=== PATIENT | female | born 1965 | race Caucasian/White ===

== ENCOUNTER 2016-10-05 12:06 | Inpatient (IN) | payer OTHER ==
[2016-10-05] VITALS (25 sets, daily range): BP systolic 66–169; BP diastolic 44–100; PULSE 50–83; RESP 14–26; TEMP 98–99.3; O2SAT 91–100
[~2016-10-05] VITALS: Ht 175.3 cm; Wt 71.5 kg
[~2016-10-05 12:06] MED LIST: CALCIUM CHLORIDE 10% SOLN 1 GRAM/10 ML SYR IV ONE; EPINEPHrine HCL (1:10,000) 1 MG/10 ML SYRINGE IV ONE; HYDR-3533 PO; IBUP400 PO; LIDOCAINE HCL 2% 100 MG/5 ML SYRINGE IV PUSH ONE; MAGNESIUM SULFATE 40 MEQ/10 ML VIAL IV ONE; SODIUM BICARBONATE 8.4% INJ 50 MEQ/50 ML SYR IV ONE
[2016-10-05] MEDS ORDERED: PROPOFOL 1000 MG/100 ML INJ 100 ML ONE (12:20)
--- NOTE | 2016-10-05 12:33 | PD ---
HPI . DENISE CHIKIS Chief Complaint: DENISE DIOP Time Seen by Provider: 12:22 Travel History International Travel<30 days: No Contact w/Intl Traveler<30days: No History of Present Illness HPI Patient presented to us via [facility] DENISE DIOP. Patient had been intubated by EMS. She had been given multiple doses of epinephrine, 75 mEq of bicarbonate and 300 mg of amiodarone. EMS reports her initial rhythm as V. fib. They report that she's been in PEA and a torsades type rhythm in addition to V. fib. They state that they have fibrillated her multiple times prior to presentation. They report that the torsades rhythm was just prior to arrival and that they did not have an opportunity to give her magnesium. EMS reports the family reports that the patient is on a cardiac transplant list. We do not have any further information about this at this point. PFSH Past Medical History Arthritis: Yes Asthma: No Blood Disorders: No Anxiety: Yes Depression: Yes Heart Rhythm Problems: Yes (PVC'S) Cancer: No Cardiovascular Problems: Yes (PVC,S) High Cholesterol: No Chemotherapy: No Chest Pain: No Congestive Heart Failure: No COPD: No Cerebrovascular Accident: No Diabetes: Yes Diminished Hearing: No Genitourinary: No Hypertension: Yes (TAKES NO MEDICATION) Psychiatric: Yes (BIPOLAR DISORDER, DEPRESSION, ATTEMPTED SUICIDE) Menopausal: Yes Past Surgical History AICD: No Appendectomy: Yes Cardiac Surgery: Yes Ear Surgery: No Endocrine Surgery: No Eye Surgery: No Genitourinary Surgery: Yes Hysterectomy: Yes Oral Surgery: No Thoracic Surgery: No Tonsillectomy: Yes Social History Alcohol Use: No Tobacco Use: No Substance Use: No Allergies-Medications (Allergen,Severity, Reaction): Coded Allergies: No Known Allergies (Verified , 05/15/11) Reported Meds & Prescriptions Reported Meds & Active Scripts Active Lortab 5 mg/325 mg (Hydrocodone/Acetaminophen 5 mg/325 mg) 1 Tab 1-2 Tab PO Q6H PRN Motrin 400 mg Tab (Ibuprofen) 400 Mg Tab 400 Mg PO Q8 PRN Review of Systems ROS Limitations: Intubated, Altered Mental Status Physical Exam Narrative GENERAL: Intubated. SKIN: Warm and dry. HEAD: Atraumatic. Normocephalic. EYES: Pupils equal and round. ENT: No nasal bleeding or discharge. Mucous membranes pink and moist. NECK: Trachea midline. CARDIOVASCULAR: Initial rhythm was V. fib. Subsequent rhythm following defibrillation 2 was normal sinus. She did have peripheral pulses and a good blood pressure following resuscitation. RESPIRATORY: Breath sounds are equal. She is ventilated. GASTROINTESTINAL: Abdomen soft, non-tender, nondistended. MUSCULOSKELETAL: No obvious deformities. No edema. NEUROLOGICAL: Unresponsive. She has developed some spontaneous movement since return of rhythm. PSYCHIATRIC: Unable to assess Data Data Orders Electrocardiogram (10/05/16 ) Propofol 1000 Mg/100 Ml Inj (Diprivan 10 (10/05/16 12:20) MDM Medical Decision Making Medical Screen Exam Complete: Yes Emergency Medical Condition: Yes Interpretation(s) EKG shows a sinus rhythm and no obvious STEMI Differential Diagnosis Differential diagnosis includes primary cardiac arrest, respiratory arrest, head injury, drug intoxication, diabetic coma Narrative Course Patient presented via [facility] in cardiac arrest. The patient has been successfully resuscitated. Please see the nurse's code sheet for details.. Critical Care Narrative Aggregate critical care time was 45 minutes. Time to perform other separately billable procedures was not included in the critical care time. My time did not include minutes spent treating any other patients simultaneously or on activities that did not directly contribute to the patient's treatment. The services I provided to this patient were to treat and/or prevent clinically significant deterioration due to cardiac arrest I provided critical care services requiring my management, as noted below: Chart data review, documentation time, medication orders and management, vital sign assessments/reviewing monitor data, ordering and reviewing lab tests, ordering and interpreting/reviewing x-rays and diagnostic studies, care of the patient and discussion of the patient with the admitting physicians Diagnosis Primary Impression: Cardiac arrest Admitting Information Admitting Physician Requests: Admit Condition: Serious Marleen Monreal MD Oct 05, 2016 12:33
[2016-10-05] MEDS ORDERED: CHLORHEXIDINE GLUCONATE 2 % 1 PACK (2 CLOTHS) TOP PRN (13:00)
[2016-10-05] MEDS ORDERED: POTASSIUM CHLOR 20 MEQ PREMIX 100 ML IV PRN ×2 (13:00)
[2016-10-05] MEDS ORDERED: MAGNESIUM SULFATE INJ 2 GM in SODIUM CHLORIDE 0.9% INJ 96 ML IV PRN (13:00)
[2016-10-05] MEDS ORDERED: ONDANSETRON HCL 4 MG/2 ML VIAL IV PRN (13:00)
[2016-10-05] MEDS ORDERED: SODIUM PHOSPHATE INJ 30 MMOL in SODIUM CHLOR 0.9% 250 ML INJ 240 ML IV PRN (13:00)
[2016-10-05] MEDS ORDERED: POTASSIUM PHOSPHATE MONOBASIC 500 MG TAB PO/TUBE PRN (13:00)
[2016-10-05] MEDS ORDERED: MAGNESIUM OXIDE 400 MG TAB PO PRN (13:00)
[2016-10-05] MEDS ORDERED: RESP: ALBUTEROL 2.5 MG/IPRATROPIUM 0.5 MG NEB (PRN) INH (13:00)
[2016-10-05] MEDS ORDERED: POTASSIUM CHLOR 40 MEQ PREMIX 100 ML IV PRN (13:00)
[2016-10-05] MEDS ORDERED: MAGNESIUM SULFATE INJ 4 GM in SODIUM CHLORIDE 0.9% INJ 92 ML IV PRN (13:00)
[2016-10-05] MEDS ORDERED: POTASSIUM PHOSPHATE MONOBASIC 500 MG TAB PO PRN (13:00)
[2016-10-05] MEDS ORDERED: POTASSIUM PHOSPHATE INJ 30 MMOL in SODIUM CHLOR 0.9% 250 ML INJ 250 ML IV PRN (13:00)
[2016-10-05] MEDS ORDERED: MISCELLANEOUS NURSING INFORMATION XX SCH (13:00)
[2016-10-05] MEDS ORDERED: DEXTROSE 50% IN WATER 50 ML VIAL(D50) IV PUSH PRN ×2 (13:00→18:15)
[2016-10-05 13:07] LABS: AUTOMATED NEUTROPHIL # 9.4 TH/MM3 (1.8-7.7); BASOPHIL # 0.1 TH/MM3 (0-0.2); BASOPHIL % 0.3 % (0.0-2.0); EOSINOPHIL # 0.1 TH/MM3 (0-0.4); EOSINOPHIL % 0.4 % (0.0-4.0); HEMATOCRIT 53.2 % (35.0-46.0); LYMPH % 60.8 % (9.0-44.0); LYMPHOCYTE # 16.5 TH/MM3 (1.0-4.8); MEAN CELL VOLUME 91.4 FL (80.0-100.0); MEAN CORPUSCULAR HEMOGLOBIN 27.9 PG (27.0-34.0); MEAN CORPUSCULAR HGB CONC 30.5 % (32.0-36.0); MONO % 3.8 % (0.0-8.0); NEUT % 34.7 % (16.0-70.0); PLATELET COUNT 186 TH/MM3 (150-450); RED BLOOD COUNT 5.82 MIL/MM3 (4.00-5.30); RED CELL DISTRIBUTION WIDTH 14.4 % (11.6-17.2); WHITE BLOOD COUNT 27.1 TH/MM3 (4.0-11.0)
[2016-10-05 13:10] LABS: HEMO FLAGS AUTO DIFF
[2016-10-05 13:17] LABS: APTT (PATIENT) 24.4 SEC (24.3-30.1); INTERNATIONAL NORMALIZED RATIO 1.1 RATIO; PROTHROMBIN TIME - PATIENT 11.8 SEC (9.8-11.6)
[2016-10-05] MEDS ORDERED: MIDAZOLAM HCL 5 MG/ML VIAL (1 ML) ONE (13:20)
--- NOTE | 2016-10-05 13:33 | HHI.HP ---
[facility] Service Critical Care Medicine Primary Care Physician Unknown Admission Diagnosis cardiac arrest Diagnosis: Chief Complaint: v. fib arrest Travel History International Travel<30 Days: No Contact w/Intl Traveler <30 Da: No Traveled to Known Affected Are: No History of Present Illness This is a 51yF who presents via [facility] for V. Fib cardiac arrest. She was given multiple rounds of epi, 2 amps of bicarb, 300mg amiodarone. Rhythms included v. fib, pea, and torsades. she received 2 gm mgso4 in the ER. ROSC was obtained. Per her two sons, she recently was at [facility] where she was given a LifeVest at the end of that admission in 07/2016. She was hot today and took off her LifeVest per her sons. They did say she had an appointment with [facility] in a few weeks to talk about "a new heart, or a pump", but no other work-up has been done. They gave me a phone number of a Dr. 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 Unfortunately, the patient is unresponsive and additional history is unobtainable. Review of Systems ROS Limitations: Clinical Condition, Intubated, Altered Mental Status, Unresponsive Past Family Social History Allergies: Coded Allergies: No Known Allergies (Verified , 05/15/11) Past Medical History Unable to obtain secondary to the clinical condition of the patient. Per EMS and hospital records: heart failure and possibly on cardiac transplant list. diabetes anxiety depression hypertension Bipolar disorder Depression ?prior history of attempted suicide Past Surgical History unable to obtain secondary to the clinical condition of the patient. Per chart review of remote hospital records: Appendectomy Hysterectomy Tonsillectomy Reported Medications Unknown and unobtainable secondary to the clinical condition of the patient. Active Ordered Medications See MAR Family History unknown and unobtainable secondary to the clinical condition of the patient Social History unknown and unobtainable secondary to the clinical condition of the patient. Per her sons, possible remote history of drug abuse Physical Exam Vital Signs Vital Signs Date Time Temp Pulse Resp B/P Pulse Ox O2 Delivery O2 Flow Rate FiO2 10/05/16 12:37 100 10/05/16 12:35 53 16 131/80 97 Ventilator 10/05/16 12:33 95 100 10/05/16 12:26 56 18 140/78 97 Ventilator 10/05/16 12:20 70 138/87 99 Ventilator 10/05/16 12:15 60 20 169/100 91 Ventilator Physical Exam gen: middle-aged female, lying in bed, intubated, unresponsive, critically ill. heent: pupils 2mm, conjugate, reactive. mucous membranes moist neck: trachea midline. +jvd. chest: bilateral breath sounds. equal chest rise cv: bradycardic rate, regular rhythm. sinus by tele abd: soft, nontender, nondistended, no guarding. extr: cold, poorly perfused. neuro: purposeful, does not follow commands. +cough. + gag. Laboratory pending. Imaging ct head pending. I performed bedside critical care echocardiogram which demonstrated severe biventricular dysfunction, no clinically significant valvular lesions, no pericardial effusion, dilated IVC with spontaneous echo contrast in the IVC and right atrium. Assessment and Plan Assessment and Plan Assessment: 51yF with history of an unknown type of heart failure who may be worked up for transplantation who presents after V. Fib arrest with persistence of cardiogenic shock in extremis. We will work towards stabilizing her with inotropes, vasopressors. we will need pulmonary artery catheter to guide management. she remains full code per her sons, but will need palliative to help address code status. We will attempt to obtain OSH records from the lifevest and recent admission. She remains very critically ill at this time. Active Problems: Possible hypoxic ischemic encephalopathy Cardiogenic Shock Acute hypoxic and hypercarbic respiratory failure s/p V. Fib Cardiac arrest Plan: -- admit to the ICU. -- art line, cvl, pac -- start epi for contractility -- may need vasoopressors. -- may need cardiology assistance and may need LV support with IABP or impella. -- versed prn for sedation and vent synchrony -- NPO while in shock -- no SBT today. vent bundle, hob at 30 degrees, nebs. wean fio2 for spo2 > 90% -- arvizu with strict i/o's and q1h uop -- cbc, bmp, lfts, coags, lactate, type and screen, u/a, UDS, toxin levels. -- trend troponins and lactate This patient remains critically ill with one or more organ systems which are or may become a threat to life. I have spent in excess of 107 minutes discontinuously in the care and management of this patient. This time is exclusive of procedures, and includes, but is not limited to, evaluation of the patient, review of the medical record, discussions with family, consultants, nursing staff, or respiratory therapy, and documentation in the medical record. Code Status Full Code Discussed Condition With Her two sons. Karel Givens MD Oct 05, 2016 13:33
[2016-10-05 13:36] LABS: BANDS 3 % (0-6); METAMYELOCYTES 1 % (0-1); NEUTROPHIL # MANUAL DIFF 11.9 TH/MM3 (1.8-7.7); POLYS (SEG NEUTROPHILS) 40 % (16-70); WBC DIFF SAMPLE 100
[2016-10-05 13:37] LABS: ACETAMINOPHEN LESS THAN 2.0 MCG/ML (10.0-30.0); ALKALINE PHOSPHATASE 152 U/L (45-117); ALT (GPT) 36 U/L (10-53); CREATINE KINASE 197 U/L (26-192); TOTAL BILIRUBIN ADULT 0.5 MG/DL (0.2-1.0)
[2016-10-05 13:39] LABS: OVALOCYTES 1+ (NORMAL); PLATELET ESTIMATE SMEAR NORMAL (NORMAL); PLATELET MORPHOLOGY NORMAL (NORMAL); SCAN/DIFF FINAL DIFF MANUAL; SMUDGE CELLS PRESENT PRESENT
[2016-10-05 14:08] LABS: ANION GAP 14 MEQ/L (5-15); AST (GOT) 60 U/L (15-37); BLOOD UREA NITROGEN 9 MG/DL (7-18); CHLORIDE 105 MEQ/L (98-107); GLOMERULAR FILTRATION RATE 48 ML/MIN (>89); INDIRECT BILIRUBIN 0.4 MG/DL (0.0-0.8); SODIUM (NA) 141 MEQ/L (136-145)
--- NOTE | 2016-10-05 14:15 | RADRPT ---
EXAM DATE/TIME: 10/05/2016 14:02 [facility] COMPARISON: No previous studies available for comparison. INDICATIONS : Altered mental status. RADIATION DOSE: 31.35 CTDIvol (mGy) MEDICAL HISTORY : Cardiovascular disease. Hypertension. SURGICAL HISTORY : Appendectomy. Hysterectomy. ENCOUNTER: Initial ACUITY: 1 day PAIN SCALE: Non-responsive LOCATION: cranial TECHNIQUE: Multiple contiguous axial images were obtained of the head. Using automated exposure control and adj ustment of the mA and/or kV according to patient size, radiation dose was kept as low as reasonably a chievable to obtain optimal diagnostic quality images. DICOM format image data is available electro nically for review and comparison. 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 The ventricles are normal for ag e. No evidence of midline shift, mass lesion, hemorrhage or acute infarction. No extra-axial fluid collections are seen. POSTERIOR FOSSA: The cerebellum and brainstem are intact. The 4th ventricle is midline. The cerebellopontine angle i s unremarkable. EXTRACRANIAL: The visualized portion of the orbits is intact. SKULL: The calvaria is intact. No evidence of skull fracture. CONCLUSION: 1. Remote posterior temporal/parietal infarct with laminar necrosis. 2. No acute intracranial abnormality. Alber Millan MD on October 05, 2016 at 14:12 Board Certified Radiologist. This report was verified electronically.
[2016-10-05 14:38] LABS: CKMB 2.9 NG/ML (0.5-3.6)
[2016-10-05] MEDS ORDERED: LIDOCAINE HCL 2% 100 MG/5 ML SYRINGE ONE (14:43)
--- NOTE | 2016-10-05 14:49 | ECHRPT ---
Indication: Heart failure, unspecified CONCLUSIONS The left ventricular systolic function is severely reduced with an estimated ejection fraction less than 20%. There is global left ventricular dysfunction. Wall thickness is measured at the upper limits of normal. Moderately dilated left ventricle. The right ventricle is moderately dilated. Jkhj-yn-oebffuyp mitral valve regurgitation. There is mild tricuspid valve regurgitation. The estimated pulmonary arterial pressure is 26 mmHg. BP: / HR: 53 Rhythm: Sinus MEASUREMENTS (Male / Female) Normal Values Technical Quality:Good 2D ECHO LV Diastolic Diameter PLAX 6.1 cm 4.2 - 5.9 / 3.9 - 5.3 cm LV Systolic Diameter PLAX 5.8 cm IVS Diastolic Thickness 1.0 cm 0.6 - 1.0 / 0.6 - 0.9 cm LVPW Diastolic Thickness 1.0 cm 0.6 - 1.0 / 0.6 - 0.9 cm LV Relative Wall Thickness 0.3 RV Internal Dim ED PLAX 4.1 cm LVOT Diameter 2.1 cm M-MODE Aortic Root Diameter MM 3.1 cm LA Systolic Diameter MM 4.0 cm LA Ao Ratio MM 1.3 AV Cusp Separation MM 1.3 cm DOPPLER AV Peak Velocity 89.5 cm/s AV Peak Gradient 3.2 mmHg LVOT Peak Velocity 74.0 cm/s LVOT Peak Gradient 2.2 mmHg AV Area Cont Eq pk 2.9 cm MR Peak Velocity 270.5 cm/s MR Peak Gradient 29.3 mmHg TR Peak Velocity 197.0 cm/s TR Peak Gradient 15.5 mmHg PV Peak Velocity 67.9 cm/s PV Peak Gradient 1.8 mmHg FINDINGS LEFT VENTRICLE There is global left ventricular dysfunction. The left ventricular systolic function is severely reduced with an estimated ejection fraction less than 20%. Wall thickness is measured at the upper limits of normal. Moderately dilated left ventricle. RIGHT VENTRICLE The right ventricle is moderately dilated. LEFT ATRIUM The left atrial size is normal. RIGHT ATRIUM The right atrial size is normal. ATRIAL SEPTUM Normal atrial septal thickness without atrial level shunting by limited color doppler interrogation. AORTA The aortic root and proximal ascending aorta are normal in size on limited imaging. MITRAL VALVE Txif-gq-yrfnaczv mitral valve regurgitation. AORTIC VALVE Trileaflet aortic valve. No aortic valve stenosis or regurgitation. TRICUSPID VALVE There is mild tricuspid valve regurgitation. The estimated pulmonary arterial pressure is 26 mmHg. PULMONARY VALVE The pulmonary valve is not well visualized. VESSELS The inferior vena cava is normal in size. PERICARDIUM No pericardial effusion. Tez Brunner MD (Electronically Signed) Final Date:05 October 2016 14:47
[2016-10-05 15:00] LABS: LACTIC ACID GHOST NOT REPORTABLE
[2016-10-05] MEDS ORDERED: NOREPINEPHRINE-DEXTROSE DRIP 250 ML IV SCH (15:00)
[2016-10-05] MEDS ORDERED: VASOPRESSIN INJ 40 UNITS in DEXTROSE 5% IN WATER 100ML INJ 98 ML IV SCH ×2 (15:00)
[2016-10-05] MEDS ORDERED: EPINEPHrine (1:1000) INJ 2 MG in DEXTROSE 5% IN WATER INJ 248 ML IV SCH ×2 (15:00)
[2016-10-05] MEDS ORDERED: MIDAZOLAM HCL 5 MG/5 ML VIAL IV ONE (15:45)
[2016-10-05] MEDS ORDERED: CLEVIDIPINE INJ 50 ML ONE (15:50)
[2016-10-05] MEDS: PROPOFOL 1000 MG/100 ML IV SCH ×4 (15:56→22:41)
--- NOTE | 2016-10-05 15:56 | PD.PROCEDR ---
Procedure Note Procedure Procedure: Arterial Line Placement Left radial arterial line Diagnosis: Status post V. fib arrest Indications: Need for beat to beat hemodynamic monitoring Consent: Consent is deemed emergent or medically necessary Description of the Procedure: The left wrist was prepped and draped sterilely. 1% lidocaine was used for local anesthesia. The pulse was located and a needle was advanced into the artery. A 20 gauge, 12 cm catheter was advanced into the artery using a modified Seldinger technique. The catheter was sutured to the skin and a sterile dressing was applied. The catheter was connected to a pressure transducer and an arterial waveform was noted. There were no immediate complications noted. There was minimal EBL. I personally performed the procedure. Karel Givens MD Oct 05, 2016 15:56
--- NOTE | 2016-10-05 15:57 | PD.PROCEDR ---
Procedure Note Procedure Central Line Procedure Note Right IJ 8.5 Setswana 10 cm Cordis introducer sheath Diagnosis: Status post V. fib arrest Indications: Need for central pressure monitoring and highly potent vasoactive substances Consent: Consent is deemed emergent Anesthesia: Versed Description of the Procedure: The patient was placed in the supine, mild- Trendelenburg position. The area was prepped and draped sterilely. A 19g needle was inserted under negative pressure aspiration and dark venous blood was obtained. A guidewire was inserted easily without resistance. A small incision was made using a #11 blade. Using a modified Seldinger technique, the dilator and 8.5 Setswana, 10 cm catheter were advanced over the guidewire without resistance. All ports were aspirated and flushed, and had brisk blood return. The line was secured at the skin using 2-0 silk interrupted sutures. A Biopatch and Transparent sterile dressing were applied. There were no immediate complications noted. There was minimal EBL. The patient tolerated the procedure well. Ultrasound Guidance: Ultrasound guidance was used to identify the right internal jugular vein. The vascular anatomy of the right anterior neck was normal. The vessel was cannulated under direct, real-time ultrasound visualization. After placement of the guidewire, confirmation of the guidewire in the lumen of the vessel was made using ultrasound visualization, before dilation of the tract. A Chest x-ray has been ordered. I personally performed the procedure. Karel Givens MD Oct 05, 2016 15:57
[2016-10-05] MEDS: INSULIN NovoLIN REGULAR SUPPLEMENTAL SCALE SQ SCH ×2 (16:00→20:00)
--- NOTE | 2016-10-05 16:03 | PD.PROCEDR ---
Procedure Note Procedure Pulmonary Artery Catheter Procedure Note Right IJ PA catheter Diagnosis: Status post V. fib arrest Indications: Need for thermodilution cardiac output Consent: Consent is deemed emergent Anesthesia: Versed IV Description of the Procedure: The patient was placed in the supine, mild-Reverse -Trendelenburg position. The area was prepped and draped sterilely. A 6 Fr pulmonary artery catheter was flushed, and all ports were checked, including PA , CVP, infusion port. The balloon was tested and inflated and deflated easily. Through an existing introducer sheath, the catheter was inserted to a depth of 20 cm and the balloon was inflated without resistance. The PA catheter was advanced under continuous waveform hemodynamic monitoring and appropriate RA, RV , PA, and PCWP waveforms were achieved. The balloon was deflated. The line was secured to the introducer sheath using a sterile cover. There were no immediate complications noted. There was minimal EBL. The patient tolerated the procedure well. PA catheter secured at: 45 cm. Hemodynamic Data: RAP: 15 mmHg RV: 75/7 mmHg PAP: 77/37 (39) mmHg PCWP: 32 mmHg achieved at 46 cm Mixed Venous SvO2: Pending % Cardiac Output: 3.1 L/min Cardiac Index: 1.8 A Chest x-ray has been ordered. I personally performed the procedure. Karel Givens MD Oct 05, 2016 16:02
--- NOTE | 2016-10-05 16:04 | PD.PROCEDR ---
Procedure Note Procedure Defibrillation procedure note Presenting rhythm: Pulseless V. tach Event Details: Defibrillation 1 at 200 J. Successful. Please see code sheet for details Procedure Description: Arrived at [facility]. See code sheet for details. I was personally present for the entire defibrillation event. Karel Givens MD Oct 05, 2016 16:04
--- NOTE | 2016-10-05 16:04 | RADRPT ---
EXAM DATE/TIME: 10/05/2016 15:40 [facility] COMPARISON: No previous studies available for comparison. INDICATIONS : Central line placement. MEDICAL HISTORY : Cardiovascular disease. Hypertension. SURGICAL HISTORY : Appendectomy. Hysterectomy. ENCOUNTER: Initial ACUITY: 1 day PAIN SCORE: Non-responsive. LOCATION: Bilateral chest FINDINGS: A single view of the chest demonstrates multilobar consolidation greater throughout the left lung. En dotracheal tube 4.5 cm above the susy. Nasogastric tube tip in stomach. Sorrento-Stephany catheter overlyin g the main pulmonary trunk. No pneumothorax. Osseous structures are intact. CONCLUSION: Multilobar consolidation. Adequate placement of Sorrento-Stephany catheter. Alber Millan MD on October 05, 2016 at 15:59 Board Certified Radiologist. This report was verified electronically.
[2016-10-05] MEDS: RESP: ALBUTEROL 2.5 MG/IPRATROPIUM 0.5 MG NEB (SCH) INH ×2 (16:12→20:37)
[2016-10-05 17:05] LABS: AMPHETAMINE, URINE NEG (NEG); BARBITURATES, URINE NEG (NEG); COCAINE, URINE NEG (NEG)
[2016-10-05 17:27] LABS: BACTERIA, URINE FEW /hpf; BLOOD, URINE SMALL (NEG); GLUCOSE,URINE 1000 mg/dL (NEG); HYALINE CAST, URINE 4 /lpf (RARE); KETONE, URINE NEG (NEG); MUCUS URINE FEW /lpf (OCC); NITRITE,URINE NEG (NEG); SQUAMOUS EPITHELIAL CELL URINE 1 /hpf (0-5); TRANSITIONAL EPI CELLS, URINE 1 /hpf; URINE COLOR YELLOW (YELLW/STRAW)
[2016-10-05 17:28] LABS: COMMENT (UR) CATH-CULTURE IND; CULTURE IF INDICATED CATH CULTURE IND
[2016-10-05] MEDS ORDERED: MAGNESIUM SULFATE 1 GM PREMIX 100 ML ONE (17:29)
--- NOTE | 2016-10-05 17:36 | EKG ---
Date Performed: 10/05/2016 Time Performed: 12:23:03 PTAGE: 51 years EKG: Sinus rhythm WITH SINUS ARRHYTHMIA BASELINE ARTIFACT AFFECTS INTERPRETATION MARKED LEFT AXIS DEVIATION INCOMPLETE RIGHT BUNDLE BRANCH BLOCK SEPTAL MYOCARDIAL INFARCTION MODERATE T-WAVE ABNORMALITY, CONSIDER ANTERIO R ISCHEMIA ABNORMAL ECG PREVIOUS TRACING : 12/18/2005 12.10 Compared to the previous tracing, IRBBB with changes are no w noted DOCTOR: Gil Hodge Interpretating Date/Time 10/05/2016 17:34:46
[2016-10-05 17:38] LABS: BLOOD GAS VENOUS BASE EXCESS 2.3 mmol/L (-2-2); BLOOD GAS VENOUS HCO3 27 mmol/L (22-26); BLOOD GAS VENOUS O2 CONTENT 16.3 Vol % (9.0-17.0); BLOOD GAS VENOUS O2 HGB SAT 79 % (70-76); BLOOD GAS VENOUS PCO2 44 mmHg (44-48); BLOOD GAS VENOUS PO2 48 mmHg (35-40); CRITICAL VALUE NO; TEMP CORR TO 98.6
[2016-10-05 17:39] LABS: DRAW SITE CENTRAL LINE; FIO2 100 %; OXYGEN DEVICE VENTILATOR; STAT YES
--- NOTE | 2016-10-05 17:50 | PD.PROCEDR ---
Procedure Note Procedure CPR procedure note Presenting rhythm: Torsades Event Details: Magnesium 2 mg IV 1 given. 2 rounds of ACLS. Defibrillation it 200 J 2. See code sheet for details. Procedure Description: Arrived at [facility]. Followed ACLS guidelines. See code sheet for details. I was personally present for the entire CPR event. Karel Givens MD Oct 05, 2016 17:50
[2016-10-05] MEDS ORDERED: FUROSEMIDE 100 MG/10 ML VIAL IV PUSH ONE (18:00)
[2016-10-05] MEDS: POTASSIUM CHLOR 40 MEQ PREMIX 100 ML IV PRN ×2 (18:04→18:09)
[2016-10-05] MEDS: LIDOCAINE IV SCH (18:13)
[2016-10-05] MEDS: DEXTROSE IV SCH (18:13)
[2016-10-05] MEDS: MIDAZOLAM 100 MG/NS 100 ML DRIP Premix IV SCH (18:14)
[2016-10-05] MEDS: AMIODARONE INJ 450 MG in DEXTROSE 5% IN WATE(EXCEL) INJ 241 ML IV SCH ×2 (18:14)
[2016-10-05] MEDS ORDERED: MISC INFORMATION OTHER ONE (18:15)
[2016-10-05] MEDS: MILRINONE 20 MG/NS 100 ML (0.375 mcg/kg/min) IV SCH ×2 (18:17)
[2016-10-05 18:49] LABS: MAGNESIUM 4.5 MG/DL (1.5-2.5)
[2016-10-05] MEDS: CHLORHEXIDINE 0.12% (ORAL KIT) 15 ML CUP MT SCH (20:05)
[2016-10-05] MEDS: DOCUSATE SODIUM 50 MG/SENNA 8.6 MG TAB PO SCH (20:05)
[2016-10-05] MEDS ORDERED: NOREPINEPHRINE INJ 4 MG in SODIUM CHLOR 0.9% 250 ML INJ 246 ML IV SCH (21:15)
[2016-10-05] MEDS ORDERED: VASOPRESSIN INJ 40 UNITS in SODIUM CHLORIDE 0.9% INJ 98 ML IV SCH (21:15)
[2016-10-06] VITALS (14 sets, daily range): BP systolic 98–144; BP diastolic 42–74; PULSE 64–82; RESP 15–20; TEMP 98.3–99.3; O2SAT 98–99
[2016-10-06] MEDS: EPINEPHrine (1:1000) INJ 2 MG in SODIUM CHLOR 0.9% 250 ML INJ 248 ML IV SCH ×2 (00:27→08:51)
[2016-10-06] MEDS: INSULIN REGULAR 100 UNITS/100 ML NS ALGORITHM 4 IV SCH ×2 (00:36)
[2016-10-06] MEDS: POTASSIUM CHLOR 40 MEQ PREMIX 100 ML IV PRN (00:59)
[2016-10-06] MEDS: AMIODARONE INJ 450 MG in DEXTROSE 5% IN WATE(EXCEL) INJ 241 ML IV SCH ×4 (03:14→17:50)
[2016-10-06] MEDS: RESP: ALBUTEROL 2.5 MG/IPRATROPIUM 0.5 MG NEB (SCH) INH ×4 (03:22→21:40)
[2016-10-06] MEDS: CHLORHEXIDINE GLUCONATE 2 % 1 PACK (2 CLOTHS) TOP SCH (04:00)
[2016-10-06] MEDS: MILRINONE 20 MG/NS 100 ML (0.375 mcg/kg/min) IV SCH ×4 (05:13→17:53)
[2016-10-06] MEDS: MIDAZOLAM 100 MG/NS 100 ML DRIP Premix IV SCH (05:14)
[2016-10-06 07:38] LABS: HEMATOCRIT 42.4 % (35.0-46.0); MEAN CELL VOLUME 87.5 FL (80.0-100.0); MEAN CORPUSCULAR HEMOGLOBIN 27.7 PG (27.0-34.0); MEAN CORPUSCULAR HGB CONC 31.7 % (32.0-36.0); PLATELET COUNT 228 TH/MM3 (150-450); RED BLOOD COUNT 4.84 MIL/MM3 (4.00-5.30); RED CELL DISTRIBUTION WIDTH 14.3 % (11.6-17.2); REVIEW FLAG FINAL; WHITE BLOOD COUNT 26.1 TH/MM3 (4.0-11.0)
[2016-10-06 07:53] LABS: BICARBONATE 29.9 MEQ/L (21.0-32.0); MAGNESIUM 2.1 MG/DL (1.5-2.5); POTASSIUM 4.2 MEQ/L (3.5-5.1)
[2016-10-06] MEDS: CHLORHEXIDINE 0.12% (ORAL KIT) 15 ML CUP MT SCH ×2 (08:35→20:17)
[2016-10-06] MEDS: PANTOPRAZOLE SODIUM 40 MG VIAL IV SCH (08:39)
[2016-10-06] MEDS: DOCUSATE SODIUM 50 MG/SENNA 8.6 MG TAB PO SCH ×2 (08:41→20:48)
[2016-10-06] MEDS: LIDOCAINE IV SCH (08:51)
[2016-10-06] MEDS: DEXTROSE IV SCH (08:51)
[2016-10-06] MEDS ORDERED: POTASSIUM CHLOR 10 MEQ PREMIX 100 ML IV ONE (10:00)
--- NOTE | 2016-10-06 10:18 | HHI.CCPN ---
Subjective Remarks/Hospital Course Hospital Course: This is a 51yF who presents via [facility]AC for V. Fib cardiac arrest. She was given multiple rounds of epi, 2 amps of bicarb, 300mg amiodarone. Rhythms included v. fib, pea, and torsades. she received 2 gm mgso4 in the ER. ROSC was obtained. Per her two sons, she recently was at [facility] where she was given a LifeVest at the end of that admission in 07/2016. She was hot today and took off her LifeVest per her sons. They did say she had an appointment with [facility] in a few weeks to talk about "a new heart, or a pump", but no other work-up has been done. They gave me a phone number of a Dr. Mckoy who is her product safety consultant. Unfortunately, the patient is unresponsive and additional history is unobtainable. Subjective: 10/06: multiple v. fib and v. tach episodes overnight. required 3 cardioversions. RHC numbers: HR 63, art 139/67 (72), PA 35/5 (18), RAP 10, PCWP 4, CI 3.4, SV 101 mL, SVR 780 dyns*sec/cm^5. neuro exam stable, withdraws x 4. adequate uop overnight, but Cr slightly worse, likely secondary to ongoing cardiogenic shock. remains on amiodarone, lidocaine, epi, milrinone. overnight when epi was weaned, patient became unstable. Objective Vital Signs Date Time Temp Pulse Resp B/P Pulse Ox O2 Delivery O2 Flow Rate FiO2 10/06/16 08:01 99 40 10/06/16 07:00 68 106/51 139/59 10/06/16 07:00 Mechanical Ventilator 10/06/16 07:00 99.0 15 Intake and Output 10/05/16 10/05/16 10/06/16 08:00 16:00 00:00 Intake Total 450 ml Output Total 1300 ml Balance -850 ml Result Diagram: 10/06/16 0705 10/06/16 0705 Other Results Laboratory Tests Test 10/05/16 17:30 Blood Gas Puncture Site CENTRAL LINE Blood Gas Patient Temperature 98.6 Venous Blood pH 7.40 (7.360-7.400) Venous Blood Partial Pressure 44 mmHg (44-48) CO2 Venous Blood Partial Pressure 48 mmHg (35-40) O2 Venous Blood HCO3 27 mmol/L (22-26) Venous Blood Oxygen Saturation 79 % (70-76) Venous Blood Oxygen Content 16.3 Vol % (9.0-17.0) Venous Blood Base Excess 2.3 mmol/L (-2-2) Oxygen Delivery Device VENTILATOR Blood Gas Ventilator Setting AC,15,500,PEEP5 Blood Gas Inspired Oxygen 100 % Imaging ct head pending. I performed bedside critical care echocardiogram which demonstrated severe biventricular dysfunction, no clinically significant valvular lesions, no pericardial effusion, dilated IVC with spontaneous echo contrast in the IVC and right atrium. Objective Remarks gen: middle-aged female, lying in bed, intubated, critically ill. heent: pupils 2mm, conjugate, reactive. mucous membranes moist neck: trachea midline. -jvd. RIJ cvl site intact and clean. chest: bilateral breath sounds. equal chest rise cv: normal rate, regular rhythm. sinus by tele. PA catheter in place. abd: soft, nontender, nondistended, no guarding. extr: extremities with improved perfusion. neuro: w/d x 4. RASS -3. +cough. + gag. A/P Assessment and Plan Assessment: 51yF with history of severe NICM, baseline EF ~20%, and a history of IV drug abuse with last known use 10 days prior to admission. Now presents s/ p V. Fib arrest out of hospital with persistence of cardiogenic shock and severe dysrhythmias. Continue inotropic therapy. will slowly wean epi as tolerated, though it appears she does not do well when her inotropes are weaned too quickly. Continue PA catheter today and trend cardiac output. She remains very critically ill at this time. Plan by systems: Neurologic: Hypoxic ischemic encephalopathy Frequent neurochecks Versed when necessary for goal RASS -2 --avoid long-acting sedatives Respiratory: Acute hypoxic and hypercarbic respiratory failure Secondary to cardiac arrest Vent bundle Head of bed 30 Nebs Wean FiO2 for goal SPO2 greater than 92% Does not meet SBT criteria today given ongoing cardiogenic shock Cardiovascular: Cardiogenic shock Status post V. fib arrest Severe nonischemic cardiomyopathy, EF less than 20% Severe biventricular dysfunction Severe acute systolic heart failure exacerbation Ventricular dysrhythmias Continue PA catheter Continue milrinone Slowly wean epi as tolerated for goal cardiac index greater than 2.5 Goal map greater than 65. We will use norepinephrine and vasopressin as needed Appreciate cardiology's ongoing recommendations Continue IV amiodarone at 1 mg/m Continue IV lidocaine at 2 mg/m Serial thermodilution cardiac outputs Hold on further diuresis given low wedge Renal: Acute kidney injury Likely secondary cardiogenic shock and postarrest Continue strict every hour urine outputs Hold on further diuresis given low pulmonary wedge pressure -- Strict I/Os FEN/GI: Acute protein calorie malnutritionmoderate Hypomagnesemia Hypokalemia Lactic acidosis Aggressive electrolyte replacements given dysrhythmias Nothing by mouth while in shock Daily BMP Trend lactates Heme/ID: Leukocytosislikely reactive No suspicious for infectious etiology this time. Follow-up blood cultures If blood cultures are positive or patient spikes fever will clinically cover with empiric antibiotics Daily BMP Endocrine: Hyperglycemia of critical illness -- SSI Prophylaxis: GI Prophylaxis Protonix 40 mg IV every 24 hours DVT Prophylaxis -- SCDs Subcutaneous heparin Lines: 7/8 left radial arterial line 7/8 right IJ 8.5 [place] Cordis introducer sheath 7/8 right IJ PEA catheter Fabian Disposition: Remain in the ICU. Very critically ill. This patient remains critically ill with one or more organ systems which are or may become a threat to life. I have spent in excess of 63 minutes discontinuously in the care and management of this patient. This time is exclusive of procedures, and includes, but is not limited to, evaluation of the patient, review of the medical record, discussions with family, consultants, nursing staff, or respiratory therapy, and documentation in the medical record. Karel Givens MD Oct 06, 2016 10:18
[2016-10-06] MEDS: MAGNESIUM SULFATE 1 GM PREMIX 100 ML IV SCH ×2 (12:40→12:41)
[2016-10-06] MEDS: PROPOFOL 1000 MG/100 ML IV SCH ×2 (13:56→17:51)
--- NOTE | 2016-10-06 14:25 | MB ---
cc: CASSY LOPEZ DINESH MD DATE OF CONSULTATION: 10/06/2016. REASON FOR CONSULTATION: Cardiac arrest. HISTORY OF PRESENT ILLNESS: Mrs. Rojas is a 51-year-old lady who is well-known to our practice. She had presented in June to [facility] with a significant cardiomyopathy. She underwent cardiac catheterization, which confirmed a nonischemic cardiomyopathy. She was put on a LifeVest and sent home with medical therapy. She went into ventricular tachycardia yesterday and needed to be defibrillated and was brought in to [facility]. She was moving and arousable and hence, the Code Cool was not initiated. Subsequently, she had two more episodes of ventricular tachycardia. Currently she is intubated with an FIO2 of 40%. She is on vasopressin for blood pressure support. She is on milrinone for pump support and she is on amiodarone and lidocaine. Her urine output has been 30-40 mL an hour. CURRENT MEDICATIONS: 1. Pantoprazole 40. 2. Heparin 5000 subcutaneous. 3. Clevidipine. 4. Amiodarone. 5. Lidocaine. REVIEW OF SYSTEMS: Her review of systems is limited as the patient is intubated. PAST MEDICAL HISTORY: 1. She does have a history of hypertension. 2. Bipolar disorder. 3. Depression. PAST SURGICAL HISTORY: 1. Appendectomy. 2. Hysterectomy. 3. Tonsillectomy. FAMILY HISTORY: Really not obtainable. SOCIAL HISTORY: Really not obtainable. PHYSICAL EXAMINATION: VITAL SIGNS: On clinical exam, blood pressure is 130/70, heart rate 70, respiratory rate 18. NECK: No jugular venous distension seen. HEART: Heart sounds are regular. Murmur of mitral regurgitation is heard over the apex. RESPIRATORY SYSTEM: Clear. ABDOMEN: Abdomen soft and nontender. Bowel sounds heard normally. EXTREMITIES: No pedal edema. LABORATORY STUDIES: Blood work and this morning shows creatinine of 1.24, potassium is 4.2, Magnesium is 2.1. Peak troponin 2.73. White count 26, hemoglobin 13.4, platelet count 228,000. IMPRESSION AND RECOMMENDATIONS: 1. Cardiac arrest in a patient with a nonischemic cardiomyopathy on inotropic support and antiarrhythmic therapy. Her wedge is low and she may need some fluid resuscitation depending on her urine output. I discussed this with the electronic operator. She will need a defibrillator if her neurological status is intact. I will review the case with Dr. Lopez who will see her tomorrow. Overall, her condition is critical and guarded. Further recommendations to follow hospital course. MD WAYNE Mendosa/MICHAEL /1:59 PM /2:19 PM
[2016-10-06] MEDS: HEPARIN SODIUM - SQ 10,000 UNITS/ML VIAL SQ SCH ×2 (15:44→22:13)
[2016-10-07] VITALS (16 sets, daily range): BP systolic 96–143; BP diastolic 50–75; PULSE 62–96; RESP 15–19; TEMP 98.3–100.2; O2SAT 96–99
[2016-10-07] MEDS: PROPOFOL 1000 MG/100 ML IV SCH ×3 (00:32→12:10)
[2016-10-07] MEDS: MIDAZOLAM 100 MG/NS 100 ML DRIP Premix IV SCH (01:16)
[2016-10-07] MEDS: LIDOCAINE IV SCH ×2 (01:17→18:32)
[2016-10-07] MEDS: DEXTROSE IV SCH ×2 (01:17→18:32)
[2016-10-07] MEDS: CHLORHEXIDINE GLUCONATE 2 % 1 PACK (2 CLOTHS) TOP SCH (03:44)
[2016-10-07] MEDS: RESP: ALBUTEROL 2.5 MG/IPRATROPIUM 0.5 MG NEB (SCH) INH ×4 (03:59→21:27)
[2016-10-07 04:30] LABS: MEAN CELL VOLUME 87.4 FL (80.0-100.0); MEAN CORPUSCULAR HEMOGLOBIN 28.4 PG (27.0-34.0); MEAN CORPUSCULAR HGB CONC 32.5 % (32.0-36.0); PLATELET COUNT 168 TH/MM3 (150-450); RED BLOOD COUNT 4.57 MIL/MM3 (4.00-5.30); RED CELL DISTRIBUTION WIDTH 14.1 % (11.6-17.2); REVIEW FLAG FINAL; WHITE BLOOD COUNT 17.8 TH/MM3 (4.0-11.0)
[2016-10-07 04:49] LABS: BICARBONATE 27.6 MEQ/L (21.0-32.0); MAGNESIUM 2.1 MG/DL (1.5-2.5); POTASSIUM 4.4 MEQ/L (3.5-5.1)
[2016-10-07] MEDS: HEPARIN SODIUM - SQ 10,000 UNITS/ML VIAL SQ SCH ×3 (06:03→20:50)
[2016-10-07] MEDS: CHLORHEXIDINE 0.12% (ORAL KIT) 15 ML CUP MT SCH ×2 (09:15→20:50)
[2016-10-07] MEDS: DOCUSATE SODIUM 50 MG/SENNA 8.6 MG TAB PO SCH ×2 (09:15→20:50)
[2016-10-07] MEDS: PANTOPRAZOLE SODIUM 40 MG VIAL IV SCH (09:16)
[2016-10-07] MEDS: MILRINONE 20 MG/NS 100 ML (0.375 mcg/kg/min) IV SCH ×4 (09:17→15:58)
[2016-10-07] MEDS: AMIODARONE INJ 450 MG in DEXTROSE 5% IN WATE(EXCEL) INJ 241 ML IV SCH ×2 (09:32)
[2016-10-07] MEDS: MUPIROCIN 2% OINT 1 APPLIC/GM SYR EACH NARE SCH ×2 (12:10→20:50)
[2016-10-07] MEDS ORDERED: CALCIUM CHLORIDE INJ 1 GM in SODIUM CHLORIDE 0.9% INJ 100 ML IV ONE (13:00)
[2016-10-07] MEDS ORDERED: LIDOCAINE HCL 2% 100 MG/5 ML SYRINGE ONE (14:00)
[2016-10-07] MEDS: fentaNYL DRIP 250 ML IV SCH (15:23)
[2016-10-07] MEDS: INSULIN REGULAR 100 UNITS/100 ML NS ALGORITHM 4 IV SCH ×2 (17:42)
--- NOTE | 2016-10-07 18:22 | HHI.CCPN ---
Subjective Remarks/Hospital Course Hospital Course: This is a 51yF who presents via EVAC for V. Fib cardiac arrest. She was given multiple rounds of epi, 2 amps of bicarb, 300mg amiodarone. Rhythms included v. fib, pea, and torsades. she received 2 gm mgso4 in the ER. ROSC was obtained. Per her two sons, she recently was at [facility] where she was given a LifeVest at the end of that admission in 07/2016. She was hot today and took off her LifeVest per her sons. They did say she had an appointment with [facility] in a few weeks to talk about "a new heart, or a pump", but no other work-up has been done. They gave me a phone number of a Dr. Mckoy [phone] who is her cassandra developer. Unfortunately, the patient is unresponsive and additional history is unobtainable. Subjective: 10/06: multiple v. fib and v. tach episodes overnight. required 3 cardioversions. RHC numbers: HR 63, art 139/67 (72), PA 35/5 (18), RAP 10, PCWP 4, CI 3.4, SV 101 mL, SVR 780 dyns*sec/cm^5. neuro exam stable, withdraws x 4. adequate uop overnight, but Cr slightly worse, likely secondary to ongoing cardiogenic shock. remains on amiodarone, lidocaine, epi, milrinone. overnight when epi was weaned, patient became unstable. 10/07: seen and examined around 1300. family at bedside. all questions answered. cardiac index improved throughout the night overnight. weaning sedation. grimaces to pain. RHC numbers: HR 81, art 127/89 (79), RAP 10, PAP 48/16 (29), PCWP 19. CO/CI 8.2/4.5, SV 101 mL, SVR 672. epi weaned off. remains on milrinone. Objective Vital Signs Date Time Temp Pulse Resp B/P Pulse Ox O2 Delivery O2 Flow Rate FiO2 10/07/16 15:00 75 143/69 127/59 10/07/16 15:00 100.2 19 98 10/07/16 15:00 Mechanical Ventilator 40 Intake and Output 10/06/16 10/06/16 10/07/16 08:00 16:00 00:00 Intake Total 2043 ml 1101 ml Output Total 747 ml 506 ml Balance 1296 ml 595 ml Result Diagram: 10/07/16 0402 10/07/16 0402 Other Results Microbiology Date/Time Procedure Status Source Growth 10/05/16 16:00 Urine Culture - Final Complete Urine Catheterized Urine NO GROWTH IN [address] head pending. I performed bedside critical care echocardiogram which demonstrated severe biventricular dysfunction, no clinically significant valvular lesions, no pericardial effusion, dilated IVC with spontaneous echo contrast in the IVC and right atrium. Objective Remarks gen: middle-aged female, lying in bed, intubated, critically ill. heent: pupils 2mm, conjugate, reactive. mucous membranes moist neck: trachea midline. -jvd. RIJ cvl site intact and clean. chest: bilateral breath sounds. equal chest rise cv: normal rate, regular rhythm. sinus by tele. PA catheter in place. abd: soft, nontender, nondistended, no guarding. extr: extremities with improved perfusion. neuro: w/d x 4. RASS -3. +cough. + gag. +grimace. does not follow commands. A/P Assessment and Plan Assessment: 51yF with history of severe NICM, baseline EF ~20%, and a history of IV drug abuse with last known use 10 days prior to admission. Now presents s/ p V. Fib arrest out of hospital with persistence of cardiogenic shock and severe dysrhythmias. Clinically starting to stabilize out today. will wean milrinone to keep CI > 2.5. sedation vacation today. still will likely need AICD before extubation to prevent recurrent pulseless arrest. Continue PA catheter as she remains very critically ill in multi organ failure. She remains very critically ill at this time. Plan by systems: Neurologic: Hypoxic ischemic encephalopathy Frequent neurochecks will d/c versed and start fentanyl and propofol for goal RASS -2 --avoid long-acting sedatives -- start daily SATs. Respiratory: Acute hypoxic and hypercarbic respiratory failure- improving. Secondary to cardiac arrest Vent bundle Head of bed 30 Nebs Wean FiO2 for goal SPO2 greater than 92% begin SBTs. Cardiovascular: Cardiogenic shock- resolving. Status post V. fib arrest Severe nonischemic cardiomyopathy, EF less than 20% Severe biventricular dysfunction Severe acute systolic heart failure exacerbation Malignant Ventricular dysrhythmias- persistent. Continue PA catheter wean off milrinone. goal CI > 2.5 off epi. Goal map greater than 65. We will use norepinephrine and vasopressin as needed -- goal SBP 90 - 120. currently on clevidipine. Appreciate cardiology's ongoing recommendations Continue IV amiodarone at 0.5 mg/m Continue IV lidocaine at 2 mg/m Serial thermodilution cardiac outputs Hold on further diuresis. clinically appears euvolemic -- would strongly recommend AICD prior to extubation to prevent further pulseless dysrhythmias. Renal: Acute kidney injury- resolved. Likely secondary cardiogenic shock and postarrest Continue strict every hour urine outputs Hold on further diuresis -- Strict I/Os FEN/GI: Acute protein calorie malnutritionmoderate Hypomagnesemia Hypokalemia Lactic acidosis- resolved. Aggressive electrolyte replacements given dysrhythmias start TF. Daily BMP Heme/ID: Leukocytosislikely reactive, downtrending. No suspicious for infectious etiology this time. Blood cultures have been negative x 48h. unlikely to have an infectious etiology. cleared from ICU standpoint for device implantation. Follow-up blood cultures Daily BMP Endocrine: Hyperglycemia of critical illness -- SSI Prophylaxis: GI Prophylaxis Protonix 40 mg IV every 24 hours DVT Prophylaxis -- SCDs Subcutaneous heparin Lines: 7/8 left radial arterial line 7/8 right IJ 8.5 [place]ien Cordis introducer sheath 7/8 right IJ PEA catheter Fabian Disposition: Remain in the ICU. Very critically ill. This patient remains critically ill with one or more organ systems which are or may become a threat to life. I have spent in excess of 37 minutes discontinuously in the care and management of this patient. This time is exclusive of procedures, and includes, but is not limited to, evaluation of the patient, review of the medical record, discussions with family, consultants, nursing staff, or respiratory therapy, and documentation in the medical record. Karel Givens MD Oct 07, 2016 18:21
[2016-10-07] MEDS: ACETAMINOPHEN 650 MG/20.3 ML UDC PO PRN (18:32)
--- NOTE | 2016-10-07 19:53 | PD.CARD.PN ---
Objective Vital Signs / I&O Vital Signs Date Time Temp Pulse Resp B/P Pulse Ox O2 Delivery O2 Flow Rate FiO2 10/07/16 15:00 75 143/69 127/59 10/07/16 15:00 100.2 81 19 143/67 98 127/59 10/07/16 15:00 98 Mechanical Ventilator 40 10/07/16 15:00 96 10/07/16 15:00 40 10/07/16 13:00 40 10/07/16 13:00 98 40 10/07/16 11:46 99.9 10/07/16 11:00 40 10/07/16 11:00 75 10/07/16 11:00 99.9 75 15 118/60 99 117/51 10/07/16 11:00 75 118/60 117/51 10/07/16 11:00 99 Mechanical Ventilator 40 10/07/16 09:59 99 40 10/07/16 07:02 99 40 10/07/16 07:00 74 10/07/16 07:00 75 109/65 110/52 10/07/16 07:00 99 Mechanical Ventilator 40 10/07/16 07:00 99.2 69 15 109/65 99 110/52 10/07/16 07:00 40 10/07/16 04:00 99 40 10/07/16 03:27 40 10/07/16 03:27 81 10/07/16 03:27 99 Mechanical Ventilator 40 10/07/16 03:27 82 131/59 127/60 10/07/16 03:27 98.3 80 15 131/59 99 127/60 10/07/16 01:43 99 40 10/06/16 23:11 82 137/69 144/52 10/06/16 23:11 98.3 75 15 137/69 99 144/58 10/06/16 23:11 40 10/06/16 23:11 99 Mechanical Ventilator 40 10/06/16 23:11 75 10/06/16 22:00 98 40 10/06/16 20:14 99 40 I/O 10/06/16 10/06/16 10/06/16 10/07/16 10/07/16 10/07/16 07:00 15:00 23:00 07:00 15:00 23:00 Intake Total 2043 ml 1101 ml 2172 ml 996 ml Output Total 792 ml 506 ml 425 ml 900 ml Balance 1251 ml 595 ml 1747 ml 96 ml Intake IV Total 2043 ml 1101 ml 2172 ml 996 ml Output Urine Total 592 ml 405 ml 425 ml 900 ml Stool Total 1 ml Gastric Drainage Total 200 ml 100 ml 0 ml 0 ml # Bowel Movements 0 0 0 Laboratory Laboratory Tests Test 10/06/16 10/07/16 22:09 04:02 Troponin I 0.39 NG/ML 0.27 NG/ML White Blood Count 17.8 TH/MM3 Red Blood Count 4.57 MIL/MM3 Hemoglobin 13.0 GM/DL Hematocrit 40.0 % Mean Corpuscular Volume 87.4 FL Mean Corpuscular Hemoglobin 28.4 PG Mean Corpuscular Hemoglobin 32.5 % Concent Red Cell Distribution Width 14.1 % Platelet Count 168 TH/MM3 Mean Platelet Volume 8.3 FL Sodium Level 141 MEQ/L Potassium Level 4.4 MEQ/L Chloride Level 107 MEQ/L Carbon Dioxide Level 27.6 MEQ/L Anion Gap 6 MEQ/L Blood Urea Nitrogen 20 MG/DL Creatinine 0.88 MG/DL Estimat Glomerular Filtration 67 ML/MIN Rate Random Glucose 95 MG/DL Calcium Level 9.0 MG/DL Magnesium Level 2.1 MG/DL Assessment and Plan Discussed Condition With 51 Y/O F C NIDCM EF 20 MILD ASHD ADMITTED P VF/PEA ARREST HAD LIFE VEST BUT WASN'T WEARING @ THE TIME LABS OK NO CXR MAP25 OFF PRESSORS AND MILRINONE NO FEVER V'ING WBC RONCHI SATS OK TOLERATED CPAP 3 HRS TODAY RRR NO S3 ABD SOFT NO EDEMA WILL CONT RX TUBE FEEDINGS CHANGE TO PO AMIO WILL NEED ICD PRIOR TO DC WEAN AND EXTUBATE Jarvis Trujillo DO Oct 07, 2016 19:53
[2016-10-07] MEDS: CARVEDILOL 3.125 MG TAB PO SCH (21:00)
[2016-10-07] MEDS: SACUBITRIL/VALSARTAN 24 MG-26 MG TAB PO SCH (21:00)
[2016-10-07] MEDS: AMIODARONE 200 MG TAB PO SCH (21:00)
[2016-10-08] VITALS (14 sets, daily range): BP systolic 104–160; BP diastolic 53–86; PULSE 58–92; RESP 15–26; TEMP 98.8–100.8; O2SAT 93–99
[2016-10-08] MEDS: RESP: ALBUTEROL 2.5 MG/IPRATROPIUM 0.5 MG NEB (SCH) INH ×4 (03:36→21:09)
[2016-10-08] MEDS: MILRINONE 20 MG/NS 100 ML (0.375 mcg/kg/min) IV SCH ×2 (03:50)
[2016-10-08] MEDS: CHLORHEXIDINE GLUCONATE 2 % 1 PACK (2 CLOTHS) TOP SCH (04:00)
[2016-10-08 04:21] LABS: HEMATOCRIT 36.6 % (35.0-46.0); MEAN CELL VOLUME 87.5 FL (80.0-100.0); MEAN CORPUSCULAR HEMOGLOBIN 28.7 PG (27.0-34.0); MEAN CORPUSCULAR HGB CONC 32.7 % (32.0-36.0); PLATELET COUNT 147 TH/MM3 (150-450); RED BLOOD COUNT 4.18 MIL/MM3 (4.00-5.30); RED CELL DISTRIBUTION WIDTH 14.5 % (11.6-17.2); REVIEW FLAG FINAL; WHITE BLOOD COUNT 11.9 TH/MM3 (4.0-11.0)
[2016-10-08 04:38] LABS: ALKALINE PHOSPHATASE 92 U/L (45-117); ALT (GPT) 20 U/L (10-53); ANION GAP 8 MEQ/L (5-15); AST (GOT) 17 U/L (15-37); BICARBONATE 24.5 MEQ/L (21.0-32.0); BLOOD UREA NITROGEN 16 MG/DL (7-18); CHLORIDE 108 MEQ/L (98-107); GLOMERULAR FILTRATION RATE 99 ML/MIN (>89); MAGNESIUM 1.9 MG/DL (1.5-2.5); POTASSIUM 4.3 MEQ/L (3.5-5.1); SODIUM (NA) 140 MEQ/L (136-145); TOTAL BILIRUBIN ADULT 0.8 MG/DL (0.2-1.0)
[2016-10-08] MEDS: PROPOFOL 1000 MG/100 ML IV SCH ×2 (06:19→16:41)
[2016-10-08] MEDS: HEPARIN SODIUM - SQ 10,000 UNITS/ML VIAL SQ SCH ×3 (06:19→22:33)
--- NOTE | 2016-10-08 06:26 | RADRPT ---
EXAM DATE/TIME: 10/08/2016 05:25 [place] COMPARISON: CHEST SINGLE AP, October 05, 2016, 15:40. INDICATIONS : Short of breath. MEDICAL HISTORY : Cardiovascular disease. Hypertension. SURGICAL HISTORY : Appendectomy. Hysterectomy. ENCOUNTER: Subsequent ACUITY: 4 - 6 days PAIN SCORE: 0/10 LOCATION: Bilateral chest FINDINGS: Considerably improved infiltrates, now minimal on the right and mild on the left. No large effusion. No pneumothorax. Heart size stable, upper limits of normal. Endotracheal tube tip is approximately 3.5 cm above the ca yuliana. Nasogastric tube courses into the stomach. There is a [place]-Stephany catheter with distal tip in the pulmonary outflow tract. CONCLUSION: Substantially improved airspace opacities, now trace at the right base and mild/diffuse on the left. Antoni Jackson MD on October 08, 2016 at 6:24 Board Certified Radiologist. This report was verified electronically.
[2016-10-08] MEDS: AMIODARONE 200 MG TAB PO SCH ×2 (09:47→22:33)
[2016-10-08] MEDS: DOCUSATE SODIUM 50 MG/SENNA 8.6 MG TAB PO SCH ×2 (09:47→22:33)
[2016-10-08] MEDS: CARVEDILOL 3.125 MG TAB PO SCH ×2 (09:47→22:33)
[2016-10-08] MEDS: MUPIROCIN 2% OINT 1 APPLIC/GM SYR EACH NARE SCH ×2 (09:47→22:33)
[2016-10-08] MEDS: PANTOPRAZOLE SODIUM 40 MG VIAL IV SCH (09:47)
[2016-10-08] MEDS: SACUBITRIL/VALSARTAN 24 MG-26 MG TAB PO SCH ×2 (09:50→22:33)
[2016-10-08] MEDS: CHLORHEXIDINE 0.12% (ORAL KIT) 15 ML CUP MT SCH ×2 (09:51→22:33)
--- NOTE | 2016-10-08 10:24 | EKG ---
Date Performed: 10/08/2016 Time Performed: 04:30:26 PTAGE: 51 years EKG: Normal Sinus rhythm Nonspecific ST-T wave changes Abnormal ECG PREVIOUS TRACING : 10/05/2016 12.23 Prior tracing was full of baseline artifact to compare ST-T wave changes DOCTOR: Tim Perez Interpretating Date/Time 10/08/2016 10:23:20
[2016-10-08] MEDS: LIDOCAINE IV SCH (11:20)
[2016-10-08] MEDS: DEXTROSE IV SCH (11:20)
[2016-10-08] MEDS ORDERED: GLUCAGON 1 MG/ML VIAL OTHER PRN (16:00)
[2016-10-08] MEDS ORDERED: DEXTROSE 50% IN WATER 50 ML VIAL(D50) IV PUSH PRN (16:00)
[2016-10-08] MEDS ORDERED: FUROSEMIDE 40 MG/4 ML VIAL IV PUSH ONE (16:15)
[2016-10-08] MEDS: MEDIUM DOSE INSULIN NOVOLOG SUPPLEMENTAL SCALE SQ SCH ×2 (16:24→22:32)
[2016-10-08] MEDS: fentaNYL DRIP 250 ML IV SCH (16:42)
--- NOTE | 2016-10-08 17:44 | HHI.CCPN ---
Subjective Remarks/Hospital Course Hospital Course: This is a 51yF who presents via EVAC for V. Fib cardiac arrest. She was given multiple rounds of epi, 2 amps of bicarb, 300mg amiodarone. Rhythms included v. fib, pea, and torsades. she received 2 gm mgso4 in the ER. ROSC was obtained. Per her two sons, she recently was at [facility] where she was given a LifeVest at the end of that admission in 07/2016. She was hot today and took off her LifeVest per her sons. They did say she had an appointment with [facility] in a few weeks to talk about "a new heart, or a pump", but no other work-up has been done. They gave me a phone number of a Dr. Mckoy [phone] who is her surface grinder. Unfortunately, the patient is unresponsive and additional history is unobtainable. Subjective: 10/06: multiple v. fib and v. tach episodes overnight. required 3 cardioversions. RHC numbers: HR 63, art 139/67 (72), PA 35/5 (18), RAP 10, PCWP 4, CI 3.4, SV 101 mL, SVR 780 dyns*sec/cm^5. neuro exam stable, withdraws x 4. adequate uop overnight, but Cr slightly worse, likely secondary to ongoing cardiogenic shock. remains on amiodarone, lidocaine, epi, milrinone. overnight when epi was weaned, patient became unstable. 10/07: seen and examined around 1300. family at bedside. all questions answered. cardiac index improved throughout the night overnight. weaning sedation. grimaces to pain. RHC numbers: HR 81, art 127/89 (79), RAP 10, PAP 48/16 (29), PCWP 19. CO/CI 8.2/4.5, SV 101 mL, SVR 672. epi weaned off. remains on milrinone. 10/08: seen and examined around 11am. cardiac index stable around 2.7 off all inotropes and with HF meds restarted. tolerated CPAP x 3 hours. PAD and CVP slowly rising today and net +. Objective Vital Signs Date Time Temp Pulse Resp B/P Pulse Ox O2 Delivery O2 Flow Rate FiO2 10/08/16 15:00 40 7/11/17 15:00 96 Mechanical Ventilator 10/08/16 15:00 72 10/08/16 15:00 100.8 18 160/86 145/71 Intake and Output 10/07/16 10/07/16 10/08/16 08:00 16:00 00:00 Intake Total 2172 ml 996 ml Output Total 425 ml 900 ml Balance 1747 ml 96 ml Result Diagram: 10/08/16 0400 10/08/[address] head pending. I performed bedside critical care echocardiogram which demonstrated severe biventricular dysfunction, no clinically significant valvular lesions, no pericardial effusion, dilated IVC with spontaneous echo contrast in the IVC and right atrium. Objective Remarks gen: middle-aged female, lying in bed, intubated, critically ill. heent: pupils 2mm, conjugate, reactive. mucous membranes moist neck: trachea midline. -jvd. RIJ cvl site intact and clean. chest: bilateral breath sounds. equal chest rise cv: normal rate, regular rhythm. sinus by tele. PA catheter in place. abd: soft, nontender, nondistended, no guarding. extr: extremities with improved perfusion. neuro: . RASS -2. fc x 4. A/P Assessment and Plan Assessment: 51yF with history of severe NICM, baseline EF ~20%, and a history of IV drug abuse with last known use 10 days prior to admission. Now presents s/ p V. Fib arrest out of hospital and severe dysrhythmias. Clinically improving. Still strongly recommend AICD prior to extubation to prevent recurrent pulseless arrest. d/c PA catheter today. Plan by systems: Neurologic: Hypoxic ischemic encephalopathy- improving. Frequent neurochecks continue fentanyl/propofol for goal RASS -2. --avoid long-acting sedatives -- daily sedation vacation Respiratory: Acute hypoxic and hypercarbic respiratory failure- improving. Secondary to cardiac arrest Vent bundle Head of bed 30 Nebs Wean FiO2 for goal SPO2 greater than 92% daily SBTs. Cardiovascular: Cardiogenic shock- resolved Status post V. fib arrest Severe nonischemic cardiomyopathy, EF less than 20% Severe biventricular dysfunction Severe acute systolic heart failure exacerbation Malignant Ventricular dysrhythmias- persistent. --d/c PA catheter. -- goal SBP 90 - 120. -- restart HF meds, carvedilol, entresto. Appreciate cardiology's ongoing recommendations -- amio po 200mg bid Continue IV lidocaine at 2 mg/m -- lasix 40mg iv x 1. goal euvolemic to net -500cc/24h. -- would strongly recommend AICD prior to extubation to prevent further pulseless dysrhythmias. Renal: Acute kidney injury- resolved. Likely secondary cardiogenic shock and postarrest lasix 40mg iv x 1. -- Strict I/Os FEN/GI: Acute protein calorie malnutritionmoderate Hypomagnesemia Hypokalemia Lactic acidosis- resolved. Aggressive electrolyte replacements given dysrhythmias continue TF. Daily BMP Heme/ID: Leukocytosislikely reactive, downtrending. No suspicious for infectious etiology this time. Blood cultures have been negative x 72h. unlikely to have an infectious etiology. cleared from ICU standpoint for device implantation. Follow-up blood cultures Daily BMP Endocrine: Hyperglycemia of critical illness -- SSI Prophylaxis: GI Prophylaxis Protonix 40 mg IV every 24 hours DVT Prophylaxis -- SCDs Subcutaneous heparin Lines: 7/8 left radial arterial line 7/8 right IJ 8.5 Marshall[place] Cordis introducer sheath 7/8 right IJ PEA catheter- d/c today. Rui Disposition: Remain in the ICU. Karel Givens MD Oct 08, 2016 17:44 Remain in the ICU. Very critically ill. This patient remains critically ill with one or more organ systems which are or may become a threat to life. I have spent in excess of 37 minutes discontinuously in the care and management of this patient. This time is exclusive of procedures, and includes, but is not limited to, evaluation of the patient, review of the medical record, discussions with family, consultants, nursing staff, or respiratory therapy, and documentation in the medical record. Karel Givens MD Oct 08, 2016 17:44
[2016-10-09] VITALS (12 sets, daily range): BP systolic 85–146; BP diastolic 53–79; PULSE 60–78; RESP 15–16; TEMP 98–100.2; O2SAT 93–98
[2016-10-09] MEDS: MEDIUM DOSE INSULIN NOVOLOG SUPPLEMENTAL SCALE SQ SCH ×6 (01:11→21:34)
[2016-10-09] MEDS: PROPOFOL 1000 MG/100 ML IV SCH ×3 (02:35→18:10)
[2016-10-09] MEDS: DEXTROSE IV SCH (03:04)
[2016-10-09] MEDS: LIDOCAINE IV SCH (03:04)
[2016-10-09] MEDS: RESP: ALBUTEROL 2.5 MG/IPRATROPIUM 0.5 MG NEB (SCH) INH ×4 (03:48→22:22)
[2016-10-09] MEDS: CHLORHEXIDINE GLUCONATE 2 % 1 PACK (2 CLOTHS) TOP SCH (04:00)
[2016-10-09 04:15] LABS: HEMATOCRIT 35.8 % (35.0-46.0); MEAN CELL VOLUME 88.2 FL (80.0-100.0); MEAN CORPUSCULAR HEMOGLOBIN 28.6 PG (27.0-34.0); MEAN CORPUSCULAR HGB CONC 32.4 % (32.0-36.0); PLATELET COUNT 146 TH/MM3 (150-450); RED BLOOD COUNT 4.06 MIL/MM3 (4.00-5.30); RED CELL DISTRIBUTION WIDTH 14.5 % (11.6-17.2); REVIEW FLAG FINAL; WHITE BLOOD COUNT 7.6 TH/MM3 (4.0-11.0)
[2016-10-09 04:46] LABS: BICARBONATE 26.6 MEQ/L (21.0-32.0); MAGNESIUM 1.8 MG/DL (1.5-2.5)
[2016-10-09] MEDS: HEPARIN SODIUM - SQ 10,000 UNITS/ML VIAL SQ SCH ×3 (05:55→21:29)
[2016-10-09] MEDS ORDERED: FUROSEMIDE 40 MG/4 ML VIAL IV PUSH ONE (07:45)
--- NOTE | 2016-10-09 07:50 | HHI.CCPN ---
Subjective Remarks/Hospital Course Hospital Course: This is a 51yF who presents via EVAC for V. Fib cardiac arrest. She was given multiple rounds of epi, 2 amps of bicarb, 300mg amiodarone. Rhythms included v. fib, pea, and torsades. she received 2 gm mgso4 in the ER. ROSC was obtained. Per her two sons, she recently was at [facility] where she was given a LifeVest at the end of that admission in 07/2016. She was hot today and took off her LifeVest per her sons. They did say she had an appointment with [facility] in a few weeks to talk about "a new heart, or a pump", but no other work-up has been done. They gave me a phone number of a Dr. Mckoy who is her wastewater operator. Unfortunately, the patient is unresponsive and additional history is unobtainable. Subjective: 10/06: multiple v. fib and v. tach episodes overnight. required 3 cardioversions. RHC numbers: HR 63, art 139/67 (72), PA 35/5 (18), RAP 10, PCWP 4, CI 3.4, SV 101 mL, SVR 780 dyns*sec/cm^5. neuro exam stable, withdraws x 4. adequate uop overnight, but Cr slightly worse, likely secondary to ongoing cardiogenic shock. remains on amiodarone, lidocaine, epi, milrinone. overnight when epi was weaned, patient became unstable. 10/07: seen and examined around 1300. family at bedside. all questions answered. cardiac index improved throughout the night overnight. weaning sedation. grimaces to pain. RHC numbers: HR 81, art 127/89 (79), RAP 10, PAP 48/16 (29), PCWP 19. CO/CI 8.2/4.5, SV 101 mL, SVR 672. epi weaned off. remains on milrinone. 10/08: seen and examined around 11am. cardiac index stable around 2.7 off all inotropes and with HF meds restarted. tolerated CPAP x 3 hours. PAD and CVP slowly rising today and net +. 10/09: clinically improving. awake following commands. somewhat agitated at times. discussed care with cardiology yesterday, and plan for AICD placement tomorrow morning. remains off vasopressors. Objective Vital Signs Date Time Temp Pulse Resp B/P Pulse Ox O2 Delivery O2 Flow Rate FiO2 10/09/16 03:51 98 40 10/09/16 03:49 98.0 61 15 104/53 109/56 10/09/16 03:49 Mechanical Ventilator Intake and Output 10/08/16 10/08/16 10/09/16 08:00 16:00 00:00 Intake Total 1026 ml 1125 ml Output Total 450 ml 802 ml Balance 576 ml 323 ml Result Diagram: 10/09/16 0400 10/09/[address] head pending. I performed bedside critical care echocardiogram which demonstrated severe biventricular dysfunction, no clinically significant valvular lesions, no pericardial effusion, dilated IVC with spontaneous echo contrast in the IVC and right atrium. Objective Remarks gen: middle-aged female, lying in bed, intubated, critically ill. heent: pupils 2mm, conjugate, reactive. mucous membranes moist neck: trachea midline. -jvd. RIJ cvl site intact and clean. chest: bilateral breath sounds. equal chest rise cv: normal rate, regular rhythm. sinus by tele. CVP 10 this AM. abd: soft, nontender, nondistended, no guarding. extr: extremities with improved perfusion. neuro: . RASS -2. fc x 4. A/P Assessment and Plan Assessment: 51yF with history of severe NICM, baseline EF ~20%, and a history of IV drug abuse with last known use 10 days prior to admission. Now presents s/ p V. Fib arrest out of hospital and severe dysrhythmias. Clinically improving. Plan for AICD placement later this week. Will remain intubated with high risk for pulseless arrest given significant history of dysrhythmias. Still strongly recommend AICD prior to extubation to prevent recurrent pulseless arrest. d/c PA catheter today. Plan by systems: Neurologic: Hypoxic ischemic encephalopathy- improving. Agitated Delirium Polysubstance abuse Frequent neurochecks continue fentanyl/propofol for goal RASS -2. -- daily sedation vacation -- will add guanfacine 2mg po q12h for agitation control and acute delirium -- add scheduled oxycodone 5mg po q4h for opiate withdraw symptoms Respiratory: Acute hypoxic and hypercarbic respiratory failure- improving. Secondary to cardiac arrest Vent bundle Head of bed 30 Nebs Wean FiO2 for goal SPO2 greater than 92% daily SBTs. failing for agitation. -- OOB to chair today. aggressive PT to prevent deconditioning Cardiovascular: Cardiogenic shock- resolved Status post V. fib arrest Severe nonischemic cardiomyopathy, EF less than 20% Severe biventricular dysfunction Severe acute systolic heart failure exacerbation- resolving. Malignant Ventricular dysrhythmias- persistent. -- goal SBP 90 - 120. -- continue carvedilol, entresto. Appreciate cardiology's ongoing recommendations -- amio po 200mg bid d/c lidocaine infusion. start mexiletine 200mg po q8h. will discuss with cardiology what their preference is for long-term anti-arrhythmic control. -- lasix 40mg iv x 1. goal euvolemic to net -500cc/24h. -- plan for AICD placement tomorrow. then will work towards extubation. Renal: Acute kidney injury- resolved. Likely secondary cardiogenic shock and postarrest lasix 40mg iv x 1. -- Strict I/Os FEN/GI: Acute protein calorie malnutritionmoderate Hypomagnesemia Hypokalemia Lactic acidosis- resolved. Constipation Aggressive electrolyte replacements given dysrhythmias continue TF. Daily BMP -- increase bowel regimen. Heme/ID: Leukocytosislikely reactive, downtrending. No suspicious for infectious etiology this time. Blood cultures have been negative x >72h. unlikely to have an infectious etiology. cleared from ICU standpoint for device implantation. Follow-up blood cultures Daily BMP Endocrine: Hyperglycemia of critical illness -- SSI Prophylaxis: GI Prophylaxis Protonix 40 mg IV every 24 hours DVT Prophylaxis -- SCDs Subcutaneous heparin Lines: 10/05 left radial arterial line 10/05 right IJ 8.5 Thai Cordis introducer sheath- keep today. Rui Disposition: Remain in the ICU. Karel Givens MD Oct 09, 2016 07:50
[2016-10-09] MEDS: CHLORHEXIDINE 0.12% (ORAL KIT) 15 ML CUP MT SCH ×2 (07:58→21:26)
[2016-10-09] MEDS: DOCUSATE SODIUM 50 MG/SENNA 8.6 MG TAB PO SCH ×4 (09:00→21:27)
[2016-10-09] MEDS: PANTOPRAZOLE SODIUM 40 MG VIAL IV SCH (09:04)
[2016-10-09] MEDS: MUPIROCIN 2% OINT 1 APPLIC/GM SYR EACH NARE SCH ×2 (09:04→21:27)
[2016-10-09] MEDS: MEXILETINE HCL 200 MG CAP PO SCH ×2 (09:04→16:07)
[2016-10-09] MEDS: CARVEDILOL 3.125 MG TAB PO SCH ×2 (09:05→21:27)
[2016-10-09] MEDS: SACUBITRIL/VALSARTAN 24 MG-26 MG TAB PO SCH ×2 (09:05→21:27)
[2016-10-09] MEDS: AMIODARONE 200 MG TAB PO SCH ×2 (09:22→21:27)
[2016-10-09] MEDS: BISACODYL 10 MG SUPP RECTAL SCH (09:22)
[2016-10-09] MEDS: LACTULOSE SYRUP 20 GM/30 ML CUP PO SCH ×2 (09:22→21:28)
[2016-10-09] MEDS: POLYETHYLENE GLYCOL 17 GM PKG PO SCH ×2 (09:22→21:28)
[2016-10-09] MEDS: INSULIN DETEMIR 100 UNITS/ML VIAL SQ SCH (09:30)
[2016-10-09] MEDS: guanFACINE HCL 1 MG TAB PO SCH ×2 (10:55→21:28)
[2016-10-09] MEDS: oxyCODONE HCL ORAL CONC 20 MG/ML SYRINGE PO SCH ×4 (10:56→21:28)
[2016-10-09] MEDS: fentaNYL DRIP 250 ML IV SCH (12:47)
--- NOTE | 2016-10-09 13:19 | PD.CARD.PN ---
Objective Vital Signs / I&O Vital Signs Date Time Temp Pulse Resp B/P Pulse Ox O2 Delivery O2 Flow Rate FiO2 10/09/16 11:00 99.9 78 15 140/68 93 85/67 10/09/16 11:00 78 140/68 85/67 10/09/16 11:00 78 10/09/16 11:00 40 10/09/16 11:00 93 Mechanical Ventilator 40 10/09/16 10:08 94 40 10/09/16 10:07 40 10/09/16 08:14 94 40 10/09/16 08:14 40 10/09/16 07:00 68 134/70 127/61 10/09/16 07:00 96 Mechanical Ventilator 40 10/09/16 07:00 98.1 68 16 134/70 96 127/61 10/09/16 07:00 68 10/09/16 07:00 40 10/09/16 03:51 98 40 10/09/16 03:49 98.0 61 15 104/53 98 109/56 10/09/16 03:49 40 10/09/16 03:49 60 10/09/16 03:49 104/53 109/56 10/09/16 03:49 98 Mechanical Ventilator 40 10/09/16 01:00 98 40 10/08/16 23:00 77 10/08/16 23:00 96 Mechanical Ventilator 40 10/08/16 23:00 40 10/08/16 23:00 139/77 129/63 10/08/16 23:00 98.8 77 15 139/77 96 129/63 10/08/16 20:30 95 40 10/08/16 19:32 104/55 140/77 10/08/16 19:32 40 10/08/16 19:32 98.8 77 20 104/55 96 140/77 10/08/16 19:32 96 Mechanical Ventilator 40 10/08/16 19:00 58 10/08/16 16:00 95 40 10/08/16 15:00 40 10/08/16 15:00 96 Mechanical Ventilator 40 10/08/16 15:00 72 10/08/16 15:00 100.8 78 18 160/86 96 145/71 10/08/16 15:00 75 160/86 145/71 10/08/16 13:25 93 40 I/O 10/08/16 10/08/16 10/08/16 10/09/16 10/09/16 10/09/16 07:00 15:00 23:00 07:00 15:00 23:00 Intake Total 1026 ml 1125 ml 1419 ml Output Total 450 ml 802 ml 1080 ml Balance 576 ml 323 ml 339 ml Intake IV Total 966 ml 625 ml 848 ml Tube Feeding 440 ml 571 ml Other 60 ml 60 ml Output Urine Total 450 ml 675 ml 1080 ml Gastric Drainage Total 127 ml # Bowel Movements 0 0 0 Laboratory Laboratory Tests Test 10/09/16 04:00 White Blood Count 7.6 TH/MM3 Red Blood Count 4.06 MIL/MM3 Hemoglobin 11.6 GM/DL Hematocrit 35.8 % Mean Corpuscular Volume 88.2 FL Mean Corpuscular Hemoglobin 28.6 PG Mean Corpuscular Hemoglobin 32.4 % Concent Red Cell Distribution Width 14.5 % Platelet Count 146 TH/MM3 Mean Platelet Volume 8.3 FL Sodium Level 139 MEQ/L Potassium Level 4.0 MEQ/L Chloride Level 106 MEQ/L Carbon Dioxide Level 26.6 MEQ/L Anion Gap 6 MEQ/L Blood Urea Nitrogen 19 MG/DL Creatinine 0.72 MG/DL Estimat Glomerular Filtration 85 ML/MIN Rate Random Glucose 237 MG/DL Calcium Level 8.5 MG/DL Magnesium Level 1.8 MG/DL Assessment and Plan Discussed Condition With PT STABLE STILL INTUBATED BUT AROUSABLE AND FOLLOWING COMMANDS NEEDS ICD RONCHI JVP NL SG REMOVED R IJ IN PLACE RRR NO S3 04/05 JAMES WILL TRY TO SCHEDULE ICD IN AM D/W C PT AND HER 3 SONS INCLUDING RISKS AND COMPLICATIONS OF PROCEDURE Jarvis Trujillo DO Oct 09, 2016 13:19
[2016-10-09] MEDS ORDERED: VANCOMYCIN HCL 1000 MG ON-CALL/NS 250 ML IV SCH ×2 (16:00)
[2016-10-10] VITALS (15 sets, daily range): BP systolic 112–174; BP diastolic 53–96; PULSE 56–92; RESP 15–26; TEMP 98.4–100.3; O2SAT 93–99
[2016-10-10] MEDS: oxyCODONE HCL ORAL CONC 20 MG/ML SYRINGE PO SCH ×6 (00:55→21:44)
[2016-10-10] MEDS: MEXILETINE HCL 200 MG CAP PO SCH ×4 (00:55→23:38)
[2016-10-10] MEDS: PROPOFOL 1000 MG/100 ML IV SCH ×2 (00:55→06:44)
[2016-10-10] MEDS: MEDIUM DOSE INSULIN NOVOLOG SUPPLEMENTAL SCALE SQ SCH ×7 (01:08→23:41)
[2016-10-10] MEDS: CHLORHEXIDINE GLUCONATE 2 % 1 PACK (2 CLOTHS) TOP SCH (04:00)
[2016-10-10 04:40] LABS: HEMATOCRIT 35.2 % (35.0-46.0); MEAN CELL VOLUME 88.9 FL (80.0-100.0); MEAN CORPUSCULAR HEMOGLOBIN 27.8 PG (27.0-34.0); MEAN CORPUSCULAR HGB CONC 31.3 % (32.0-36.0); PLATELET COUNT 157 TH/MM3 (150-450); RED BLOOD COUNT 3.95 MIL/MM3 (4.00-5.30); RED CELL DISTRIBUTION WIDTH 14.4 % (11.6-17.2); REVIEW FLAG FINAL
[2016-10-10] MEDS: RESP: ALBUTEROL 2.5 MG/IPRATROPIUM 0.5 MG NEB (SCH) INH ×4 (04:45→21:17)
[2016-10-10 05:06] LABS: BICARBONATE 29.9 MEQ/L (21.0-32.0); MAGNESIUM 1.9 MG/DL (1.5-2.5)
[2016-10-10] MEDS: HEPARIN SODIUM - SQ 10,000 UNITS/ML VIAL SQ SCH ×3 (05:43→21:42)
[2016-10-10] MEDS ORDERED: MIDAZOLAM HCL 5 MG/5 ML VIAL ONE (07:03)
[2016-10-10] MEDS ORDERED: KETAMINE HCL 500 MG/10 ML VIAL ONE (07:08)
[2016-10-10] MEDS ORDERED: VANCOMYCIN 500 MG VIAL ONE (07:27)
[2016-10-10] MEDS ORDERED: VANCOMYCIN HCL 1000 MG VIAL ONE (07:28)
[2016-10-10] MEDS ORDERED: LIDOCAINE HCL 2% 50 ML VIAL ONE (07:28)
[2016-10-10] MEDS ORDERED: SODIUM CHLOR 0.9% 250 ML INJ 250 ML ONE (07:28)
[2016-10-10] MEDS: CHLORHEXIDINE 0.12% (ORAL KIT) 15 ML CUP MT SCH ×2 (08:00→20:00)
--- NOTE | 2016-10-10 08:32 | CATHPROC ---
[facility] HIS Report Study Information Study Number Admission Scheduled Start Study Start [id number] Oct 05 2016 12:36PM 10/10/2016 Oct 10 2016 6:40AM [place] Service Electrophysiology Study Admit Source Facility Department Other [facility] - System Engineer Physician and Clinical Staff Initial Jarvis Das Manager Of Purchasing Sona Jaramillo,CAR SHIFTER TECH2 Manager Of Purchasing Alfonso Moffett,RT(R) Other Anesthesia, ONLINE MARKETING STRATEGIST Recorder Mandi Jenkins,NATACHA Recorder Oralia Law RN Scrub Alka Patterson,FILIBERTO Procedures Performed Procedure Lead Insertion Equipment Time Assistant Professor Of Criminal Justice Description Size Mfg Part Number Used/Scraped 07:54 [employer]words PACER SAFE SHEATH, FR8, 13CM FR 8 [id number] Used 07:41 Needle Sponge Count 1 111 Used 07:41 Needle Sponge Count 2 2 Used 07:41 Needle Sponge Count 30 1 Used 07:56 VITATRON [employer] DEFIBRILLATOR, VISIA AF MRI VR [id number] [id number] Used LEAD, SPRINT QUATTRO SECURE 07:50 VITATRON [employer] * [id number] Used 62CM Equipment Model, Serial, Lot Number and Expiration Data Description Model Number Serial Number Lot Number Expiration Date DEFIBRILLATOR, VISIA AF MRI VR [id number] 11-25-2017 LEAD, SPRINT QUATTRO SECURE [id number] 07-08-2018 62CM History: Allergies Allergy Reaction No Known Allergies *MDRO Multi-Drug Resistant Organism History: Risk Factors Hypertension Yes Diabetes Diabetes Therapy Labs Hgb (g/dl) Hct (%) WBC (l/cumm) 11.60-17.00 35.00-51.00 4.00-11.00 11.0 35 6 Glucose (mg/dl) BUN (mg/dl) Creatinine (mg/dl) BUN:Creatinine (1:x) 74.00-106.00 7.00-18.00 0.50-1.30 10.00-20.00 252 16 0.6 26.7 Na (meq/l) K (meq/l) 136.00-145.00 3.50-5.10 140 4 INR (PTT:PT) 0.90-1.10 1.1 Medication Medication Total Dose (Bolus/Oral) Medication Total Dosage/Unit 2% XYLOCAINE 50 mL Medications (Bolus/Oral) Medication Time Given Dosage/Unit Administered By Reason 2% XYLOCAINE 10/10/2016 7:40:40 AM 50 mL Jarvis Trujillo 50 mL 2% XYLOCAINE given in lab by Jarvis Trujillo in Left shoulder via Subcutaneous. Ordered by Jarvis Greenberg. Medication (Drip) Medication Time Given Dosage/Unit Concentration/Unit Diluent (ml) Solution VANCOMYCIN DRIP 10/10/2016 7:30:23 AM 1 g 1 g VANCOMYCIN DRIP given in lab by AnesthesiaCIERRA via Peripheral IV. Ordered by Jarvis Trujillo. Reason: As per physicians verbal order. Initial Case Assessment Cardiovascular HR Rhythm NIBP Chest Pain 63 sr 122/71 0 Edema Present Skin color Skin None Normal Warm Dry Circulatory - Lower Extremities Color Lower Right Color Lower Left Normal Normal Neurological State Drowsy Comment: sedated with propofol Respiration - General Respiration Rate SpO2 (%) O2 (lpm) (B/min) 16 100 60 Respiration - Ventilator Type Intubation Type ET(oral) Respiration - Ventilator Settings IMV (L) FIO2 (%) PEEP (cm/H2O) PS (cm/H2O) 16 60 5 15 Final Case Assessment Cardiovascular HR Rhythm NIBP Chest Pain 61 sr 105/58 0 Edema Present Skin color Skin None Normal Warm Dry Circulatory - Lower Extremities Color Lower Right Color Lower Left Normal Normal Neurological State Comment: sedated Respiration - General Respiration Rate SpO2 (%) (B/min) 14 100 Respiration - Ventilator Type Intubation Type ET(oral) Respiration - Ventilator Settings FIO2 (%) 60 Chronological Log Time Study Chronological Log 7:11:18 Patient arrived via Bed. 7:11:20 Patient Name, D.O.B, / Armband Verified By R.N. 7:11:20 Anesthesia at bedside. Assumes care of patient. Bel 7:11:22 Consent signed by the physician and the patient and verified by the System Engineer staff. 7:11:23 Pre-op and post- op instructions given; patient acknowledges understanding of instructions. 7:11:26 Patient has been NPO for More than 6Hrs. 7:11:28 Skin Breakdown- 7:11:36 Verbal Stimulation=1 Physical Stimulation=2 Airway=1 Respiration=1 TOTAL=5. (0=absent, 1=li mited, 2=present) 7:11:49 Disposable Defibrillator Pads Placed On Patient. 7:12:11 History and physical on the chart. 7:12:46 Patient Warmer Placed on the Table. 7:13:53 Shiv Prominences Protected 7:13:59 A # ~SIZE~ IV was noted in the Jugular Vein (right). Grade = 0 Propofol infusing from floor 7:14:40 A # 22 IV was noted in the Hand (left). Grade = 0 Initiated by referral and information aide. 0.9ns kvo 7:14:58 A # 20 IV was noted in the Wrist (right). Grade = 0 0.9ns kvo 7:16:16 MD arrived. 7:20:20 Table restraints applied according to hospital policy 1 g VANCOMYCIN DRIP given in lab by Anesthesia, ONLINE MARKETING STRATEGIST via Peripheral IV. Ordered by Buck Trujillo. Reason: As 7:30:23 per physicians verbal order. 7:31:48 2% CHLORHEXIDINE GLUCONATE WASH AND NASAL SWIPE DONE PRIOR TO PROCEDURE. 7:31:51 Bovie ground pad applied to: right thigh First Sponge And Instrument Count Done by Jarvis Trujillo. 7:31:58 Hypo's: 2, Sponges: 30, Bovie/scratch: 1 Sutures: 10, Blades: 3, Instruments: 25, Syveck Patches: 0 7:32:08 Left Upper Chest Prepped Times Two. Time Out. Correct patient, procedure, procedure equipment, site and side verified with physician present. Time 7:40:05 concurred by , individual staff and ONLINE MARKETING STRATEGIST. Time Out #2 - Consents verified, patient in correct position, all results are labled and display ed, safety precautions 7:40:30 taken, antibiotics administered. Time out concurred by , individual staff and ONLINE MARKETING STRATEGIST in procedur e 7:40:36 Case Start 50 mL 2% XYLOCAINE given in lab by Jarvis Trujillo in Left shoulder via Subcutaneous. Ordered by Cassandra, 7:40:40 Jarvis. 7:41:00 Surgical Incision Made. 7:42:07 A pocket was created at the L Upper Chest. Assessment: Initial Case, HR=63 BPM, Rhythm=sr, JLIC=902/71 mmhg, Chest Pain=0, Edema=None, Mcdaniels r=Normal, Skin = Warm, Dry Lower Right Extremities: Color=Normal 7:42:36 Lower Left Extremities: Color=Normal Neurological: State=Drowsy, Comment=sedated with propofol Respiration: Resp=16 B/min, XqR6=274 %, O2=60 lpm, Type=ET(Oral), IMV=16 L, FIO2=60 %, PEEP=5 cm /H2O, PS=15 cm/H2O 7:44:04 Reference ECG taken 7:48:25 Vascular access was obtained in the Subclav. Vein (Lft. 7:53:42 A SAFE SHEATH, FR8, 13CM FR 8 was advanced into the Subclav. Vein (Lft using the Modified Se gonzalez technique. 7:54:05 A LEAD, SPRINT QUATTRO SECURE 62CM * was inserted and positioned in the RV. 7:54:12 Lead placement verified under fluoroscopy 7:54:13 The RV lead impedance and threshold being tested. 7:54:53 Pocket flushed with antibiotic solution 8:01:14 The RV lead impedance and threshold being tested. 8:01:24 The RV lead was sutured to the fascia. Second Sponge And Instrument Count Done by Jarivs Trujillo. 8:08:17 Hypo's: 2, Sponges: 30, Bovie/scratch: 1 Sutures: 10, Blades: 3, Instruments: 25, Syveck Patches: 0 8:10:25 A DEFIBRILLATOR, VISIA AF MRI VR VVEVVIR was connected and placed in the pocket. 8:20:03 The pocket was closed. 8:20:08 Implant Procedure was performed. 8:20:15 A ICD Implant . (Single) 8:22:49 Case End 8:24:00 No case complications noted. 8:24:01 Cine recording checked. 8:24:27 CVICU called. Spoke to Jeane 8:25:00 Bedside Report will be given. Final Sponge And Instrument Count Done by Jarvis Trujillo. 8:25:15 Hypo's: 2, Sponges: 30, Bovie/scratch: 1 Sutures: 10, Blades: 3, Instruments: 25, Syveck Patches: 0 8:25:58 Sterile dressing applied to site by 8:26:55 Defibrillator and ground pads removed. Skin intact. Assessment: Final Case, HR=61 BPM, Rhythm=sr, FNKV=958/58 mmhg, Chest Pain=0, Edema=None, Mcdaniels r=Normal, Skin = Warm, Dry Lower Right Extremities: Color=Normal 8:29:46 Lower Left Extremities: Color=Normal Neurological: Comment=sedated Respiration: Resp=14 B/min, WjL6=132 %, Type=ET(Oral), FIO2=60 % 8:30:49 A sling was placed on the affected arm. 8:35:56 Patient moved to stretcher End Study - Contrast Media Used In Study Contrast Total Opened (mL) Total Used (mL) Total Wasted (mL) Unspecified 0 0 0 End Study - Maximum Contrast Load Max Contrast Load (mL) 579.2 End Study - Radiation Exposure Fluoro Time (minutes) 1.9 End Study - Patient Disposition Complications Transferred To Interventional Outcome No Telemetry Bed successful
[2016-10-10] MEDS: DOCUSATE SODIUM 50 MG/SENNA 8.6 MG TAB PO SCH ×3 (09:00→21:42)
[2016-10-10] MEDS: CARVEDILOL 3.125 MG TAB PO SCH ×2 (09:00→21:41)
[2016-10-10] MEDS: guanFACINE HCL 1 MG TAB PO SCH ×2 (09:11→21:42)
[2016-10-10] MEDS: MUPIROCIN 2% OINT 1 APPLIC/GM SYR EACH NARE SCH ×2 (09:11→21:41)
[2016-10-10] MEDS: PANTOPRAZOLE SODIUM 40 MG VIAL IV SCH (09:11)
[2016-10-10] MEDS: SACUBITRIL/VALSARTAN 24 MG-26 MG TAB PO SCH ×2 (09:11→21:42)
[2016-10-10] MEDS: BISACODYL 10 MG SUPP RECTAL SCH (09:12)
[2016-10-10] MEDS: POLYETHYLENE GLYCOL 17 GM PKG PO SCH ×2 (09:12→23:39)
[2016-10-10] MEDS: LACTULOSE SYRUP 20 GM/30 ML CUP PO SCH ×2 (09:12→23:40)
[2016-10-10] MEDS: AMIODARONE 200 MG TAB PO SCH ×2 (09:12→21:41)
[2016-10-10] MEDS: INSULIN DETEMIR 100 UNITS/ML VIAL SQ SCH (09:14)
[2016-10-10] MEDS ORDERED: HYDROmorphone HCL PF 1 MG/ML VIAL IV PUSH ONE (09:45)
--- NOTE | 2016-10-10 10:54 | HHI.CCPN ---
Subjective Remarks/Hospital Course Hospital Course: This is a 51yF who presents via [facility] for V. Fib cardiac arrest. She was given multiple rounds of epi, 2 amps of bicarb, 300mg amiodarone. Rhythms included v. fib, pea, and torsades. she received 2 gm mgso4 in the ER. ROSC was obtained. Per her two sons, she recently was at [facility] where she was given a LifeVest at the end of that admission in 07/2016. She was hot today and took off her LifeVest per her sons. They did say she had an appointment with [facility] in a few weeks to talk about "a new heart, or a pump", but no other work-up has been done. They gave me a phone number of a Dr. 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 Unfortunately, the patient is unresponsive and additional history is unobtainable. Subjective: 10/06: multiple v. fib and v. tach episodes overnight. required 3 cardioversions. RHC numbers: HR 63, art 139/67 (72), PA 35/5 (18), RAP 10, PCWP 4, CI 3.4, SV 101 mL, SVR 780 dyns*sec/cm^5. neuro exam stable, withdraws x 4. adequate uop overnight, but Cr slightly worse, likely secondary to ongoing cardiogenic shock. remains on amiodarone, lidocaine, epi, milrinone. overnight when epi was weaned, patient became unstable. 10/07: seen and examined around 1300. family at bedside. all questions answered. cardiac index improved throughout the night overnight. weaning sedation. grimaces to pain. RHC numbers: HR 81, art 127/89 (79), RAP 10, PAP 48/16 (29), PCWP 19. CO/CI 8.2/4.5, SV 101 mL, SVR 672. epi weaned off. remains on milrinone. 10/08: seen and examined around 11am. cardiac index stable around 2.7 off all inotropes and with HF meds restarted. tolerated CPAP x 3 hours. PAD and CVP slowly rising today and net +. 10/09: clinically improving. awake following commands. somewhat agitated at times. discussed care with cardiology yesterday, and plan for AICD placement tomorrow morning. remains off vasopressors. 10/10: continues to improve. AICD placement today. awake on SBT currently. slightly net - over last 24h. end-organ perfusion appears adequate. Objective Vital Signs Date Time Temp Pulse Resp B/P Pulse Ox O2 Delivery O2 Flow Rate FiO2 10/10/16 09:36 40 10/10/16 09:00 76 10/10/16 09:00 98.4 15 122/53 93 10/10/16 09:00 Mechanical Ventilator Intake and Output 10/09/16 10/09/16 10/10/16 08:00 16:00 00:00 Intake Total 1419 ml 965 ml Output Total 1080 ml 1650 ml Balance 339 ml -685 ml Result Diagram: 10/10/16 04010/10/16399 Objective Remarks gen: middle-aged female, lying in bed, intubated heent: pupils 2mm, conjugate, reactive. mucous membranes moist neck: trachea midline. -jvd. RIJ cvl site intact and clean. chest: bilateral breath sounds. equal chest rise. currently on PSV 5/5/40%. there is a pressure dressing over the left anterior chest wall which is clean, dry, intact. cv: normal rate, regular rhythm. sinus by tele. abd: soft, nontender, nondistended, no guarding. extr: extremities with improved perfusion. neuro: . RASS -1. fc x 4. A/P Assessment and Plan Assessment: 51yF with history of severe NICM, baseline EF ~20%, and a history of IV drug abuse with last known use 10 days prior to admission. Now presents s/ p V. Fib arrest out of hospital and severe dysrhythmias. Clinically improving. AICD placed today. will move towards weaning to extubate today. Plan by systems: Neurologic: Hypoxic ischemic encephalopathy- improving. Agitated Delirium- improving. Polysubstance abuse Frequent neurochecks continue fentanyl/propofol for goal RASS 0. -- daily sedation vacation -- continue guanfacine 2mg po q12h for agitation control and acute delirium -- continue scheduled oxycodone 5mg po q4h for opiate withdraw symptoms Respiratory: Acute hypoxic and hypercarbic respiratory failure- improving. Secondary to cardiac arrest Vent bundle Head of bed 30 Nebs Wean FiO2 for goal SPO2 greater than 92% SBT today, and extubate if she passes. -- OOB to chair today. aggressive PT to prevent deconditioning Cardiovascular: Cardiogenic shock- resolved Status post V. fib arrest Severe nonischemic cardiomyopathy, EF less than 20% Severe biventricular dysfunction Severe acute systolic heart failure exacerbation- resolving. Malignant Ventricular dysrhythmias- persistent. -- goal SBP 90 - 120. -- continue carvedilol, entresto. Appreciate cardiology's ongoing recommendations -- amio po 200mg bid continue mexiletine 200mg po q8h. -- lasix 40mg iv x 1. goal euvolemic to net -500cc/24h. -- s/p AICD placement 10/10. Renal: Acute kidney injury- resolved. Likely secondary cardiogenic shock and postarrest lasix 40mg iv x 1. -- Strict I/Os FEN/GI: Acute protein calorie malnutritionmoderate Hypomagnesemia Hypokalemia Lactic acidosis- resolved. Constipation Aggressive electrolyte replacements given dysrhythmias continue TF. Daily BMP -- increase bowel regimen. Heme/ID: Leukocytosislikely reactive, resolved. No suspicious for infectious etiology this time. Blood cultures have been negative x >72h. unlikely to have an infectious etiology. cleared from ICU standpoint for device implantation. Follow-up blood cultures Daily CBC Endocrine: Hyperglycemia of critical illness -- SSI -- Levemir 10 units SQ daily. Prophylaxis: GI Prophylaxis Protonix 40 mg IV every 24 hours DVT Prophylaxis -- SCDs Subcutaneous heparin Lines: 10/05 right IJ 8.5 [place] Cordis introducer sheath- d/c today Fabian: d/c today. Disposition: Remain in the ICU. could consider transfer out of ICU tomorrow if she continues to clinically improve. Karel Givens MD Oct 10, 2016 10:53
[2016-10-10 11:54] LABS: BLOOD GAS VENOUS HCO3 25 mmol/L (22-26); BLOOD GAS VENOUS O2 CONTENT 11.9 Vol % (9.0-17.0); BLOOD GAS VENOUS O2 HGB SAT 71 % (70-76); BLOOD GAS VENOUS PCO2 39 mmHg (44-48); BLOOD GAS VENOUS PO2 36 mmHg (35-40); BLOOD GAS VENOUS pH 7.42 (7.360-7.400); CRITICAL VALUE NO; TEMP CORR TO 98.6
[2016-10-10 11:55] LABS: DRAW SITE RT BRACHIAL; FIO2 40 %; OXYGEN DEVICE VENTILATOR; STAT NO; VENT SETTINGS CPAP +5PEEP/5PS
[2016-10-10] MEDS ORDERED: ACETAMINOPHEN 1000 MG/100 ML VIAL IV PRN (13:15)
--- NOTE | 2016-10-10 13:21 | RADRPT ---
EXAM DATE/TIME: 10/10/2016 12:22 [facility] COMPARISON: CHEST SINGLE AP, October 05, 2016, 15:40. CHEST SINGLE AP, October 08, 2016, 5:25. INDICATIONS : Post ICD placement. MEDICAL HISTORY : Cardiovascular disease. Hypertension. SURGICAL HISTORY : Appendectomy. Hysterectomy. ENCOUNTER: Initial ACUITY: 4 - 6 days PAIN SCORE: Non-responsive. LOCATION: chest FINDINGS: There is been placement of CAD. There is no pneumothorax. The heart is enlarged. There are small bilateral effusions and congestive failure. There is no pneumothorax seen on the left. The exam does demonstrate a small apical pneumothorax on t he right this appears to be unrelated to the patient's pacer placement. It is similar in appearance t o previous dated 10/08/16. CONCLUSION: 1. Interval placement of a ICD. 2. Congestive failure. 3. There is a small pneumothorax on the right. This does not appear to be related to the pacer placem ent on the left. 4. No pneumothorax seen on the left. El Rhodes MD on October 10, 2016 at 13:17 Board Certified Radiologist. This report was verified electronically.
[2016-10-10] MEDS: VANCOMYCIN 1,000 MG/NS 250 ML IV SCH ×4 (13:56→23:37)
[2016-10-10] MEDS: FUROSEMIDE 40 MG/4 ML VIAL IV PUSH SCH (14:06)
[2016-10-10] MEDS ORDERED: PROPOFOL 200 MG/20 ML AMP IV ONE (15:24)
[2016-10-10] MEDS ORDERED: SODIUM CHLORID 0.9% 500 ML BAG OTHER ONE (15:24)
--- NOTE | 2016-10-10 16:03 | MP ---
cc: CASSY LOPEZMeliza DO DATE OF SURGERY: October 10, 2016 PROCEDURE Implantation of a single chamber Medtronic ICD. CLINICAL DATA The patient is a 51-year-old female with a nonischemic cardiomyopathy, sudden cardiac including torsade, PEA and ventricular fibrillation. She has been hospitalized. She has an ejection fraction of 20%. Previous cardiac catheterization demonstrated minimal coronary artery disease. PROCEDURE After informed consent was obtained from the patient and her three sons, she was brought to the EP operating suite. She was intubated in the ICU and had not been extubated since admission to the hospital after her resuscitation. Neurologically she appeared to be intact, able to follow commands, etc. She received a gram of vancomycin IV. After we sterilely prepped and draped the patient in the usual manner, the left infraclavicular area was infiltrated with 2% lidocaine. A #15 blade was used to create a infraclavicular incision. Sharp and blunt dissection utilized to make the pocket. Next, using modified Seldinger technique a 8-Khmer venous sheath was placed in the left subclavian vein. The high-voltage pace sense lead was then manipulated into the RV outflow tract with alternating use of curved and straight stylets manipulated in the right ventricular apex and screwed into place with the torque wrench. First site sample gave adequate numbers. The safe sheath was removed, lead was secured to the prepectoral fascia with 1-0 Ethibond suture. We tested the lead multiple times including 10 volts with no diaphragmatic stimulation noted. At this point in time, we irrigated the pocket with copious amounts of vancomycin irrigant solution. I secured the lead with the supplied collar with two separate 2-0 Ethibond suturs. The device was then connected, parameters were found to be stable. I secured the device at the 11 o'clock position with a single 2-0 Ethibond suture. We inspected for bleeding, none noted. The pocket was irrigated again with copious amounts of vancomycin solution. The subcutaneous tissue was closed in two layers with 2-0 Ethibond. The skin was closed with 3-0 Silk using vertical mattress sutures. Sterile pressure dressing was applied. The device is a Major Aide, model number [id number], the serial number is [id number]. The lead is a Medtronic, model number [id number]. The serial number is [id number]. The device was programmed lower rate limit of 50. We had two tachy zones, a monitoring zone with no therapies at 150, a VF zone at 182, first detection is 18 for 24. There is __ TP well charging. The first shock 5 joules, second shock 15 joules followed by 435 joules shocks. The patient appeared to tolerate the procedure well without any obvious complications. Stat portable chest x-ray and EKG pending at the time of this dictation. PARAMETERS FOUND AT THE TIME OF IMPLANT The R wave sensing was 13.2 mV. The pacing threshold 0.4 volts, 442 ohms, resistance in the HBB was 31 ohms and the HBX was 36 ohms. DO JAYLEN Mcbride/ELADIA /8:35 AM /3:33 PM
--- NOTE | 2016-10-10 17:52 | RADRPT ---
EXAM DATE/TIME: 10/10/2016 17:13 [facility] COMPARISON: CHEST SINGLE AP, October 10, 2016, 12:22. INDICATIONS : Evaluate pneumothorax MEDICAL HISTORY : Cardiovascular disease. Hypertension Congestive heart failure. SURGICAL HISTORY : Appendectomy. Hysterectomy. Pacemaker. ENCOUNTER: Subsequent ACUITY: 4 - 6 days PAIN SCORE: 0/10 LOCATION: chest FINDINGS: A single portable frontal view of the chest shows no significant change within the right-sided apical pneumothorax. It is less visible on this study due to technique. Bibasilar pulmonary infiltrates are unchanged. Heart remains mildly enlarged. Pacemaker device overlies left chest. No effusions. CONCLUSION: Small right apical pneumothorax is not as well-seen on the current study due to technical factors. It appears unchanged. Unchanged bibasilar infiltrates. Carmine Vargas Jr., MD on October 10, 2016 at 17:45 Board Certified Radiologist. This report was verified electronically.
[2016-10-10] MEDS: oxyCODONE/ACETAMINOPHEN 5 MG/325 MG TAB PO PRN (18:14)
[2016-10-10] MEDS: HYDROmorphone HCL PF 1 MG/ML VIAL IV PUSH PRN (23:44)
[2016-10-11] VITALS (27 sets, daily range): BP systolic 105–138; BP diastolic 51–84; PULSE 62–75; RESP 16–18; TEMP 97.3–98.6; O2SAT 90–98
[2016-10-11] MEDS: oxyCODONE HCL ORAL CONC 20 MG/ML SYRINGE PO SCH ×6 (02:49→21:17)
[2016-10-11] MEDS: MEDIUM DOSE INSULIN NOVOLOG SUPPLEMENTAL SCALE SQ SCH ×2 (03:16→07:58)
[2016-10-11] MEDS: CHLORHEXIDINE GLUCONATE 2 % 1 PACK (2 CLOTHS) TOP SCH (03:16)
[2016-10-11] MEDS: RESP: ALBUTEROL 2.5 MG/IPRATROPIUM 0.5 MG NEB (SCH) INH ×4 (03:45→20:50)
[2016-10-11] MEDS: HEPARIN SODIUM - SQ 10,000 UNITS/ML VIAL SQ SCH ×2 (05:15→12:34)
[2016-10-11] MEDS: VANCOMYCIN 1,000 MG/NS 250 ML IV SCH ×2 (05:15)
--- NOTE | 2016-10-11 05:39 | RADRPT ---
EXAM DATE/TIME: 10/11/2016 04:54 [facility] COMPARISON: CHEST SINGLE AP, October 10, 2016, 17:13. INDICATIONS : Evaluate lungs post device placement. MEDICAL HISTORY : Congestive heart failure. Hypertension Cardiovascular disease. SURGICAL HISTORY : Appendectomy. Hysterectomy. Pacemaker. ENCOUNTER: Subsequent ACUITY: 1 week PAIN SCORE: Non-responsive. LOCATION: Bilateral chest FINDINGS: There are diminished lung volumes with bilateral patchy airspace disease in greatest in the left lowe r lobe. Pacer/ICD device again seen. Osseous structures are intact. Cardiomegaly. CONCLUSION: Bilateral airspace disease with diminished lung volumes. Je Perez MD on October 11, 2016 at 5:37 Board Certified Radiologist. This report was verified electronically.
[2016-10-11 06:10] LABS: MEAN CELL VOLUME 88.5 FL (80.0-100.0); MEAN CORPUSCULAR HGB CONC 31.7 % (32.0-36.0); PLATELET COUNT 210 TH/MM3 (150-450); RED BLOOD COUNT 4.18 MIL/MM3 (4.00-5.30); RED CELL DISTRIBUTION WIDTH 14.1 % (11.6-17.2); REVIEW FLAG FINAL; WHITE BLOOD COUNT 6.1 TH/MM3 (4.0-11.0)
[2016-10-11 06:33] LABS: BICARBONATE 29.8 MEQ/L (21.0-32.0); MAGNESIUM 1.7 MG/DL (1.5-2.5); POTASSIUM 3.9 MEQ/L (3.5-5.1)
[2016-10-11] MEDS: INSULIN DETEMIR 100 UNITS/ML VIAL SQ SCH (07:59)
--- NOTE | 2016-10-11 08:39 | HHI.PR ---
Subjective Remarks Consulted by critical care medicine for transfer of care and Medical Management. Follow-Up for V. fib Cardiac Arrest. Chart reviewed dw RN and CM. No complaints denies SOB and CP on NC Objective Vitals Vital Signs Date Time Temp Pulse Resp B/P Pulse Ox O2 Delivery O2 Flow Rate FiO2 10/11/16 08:15 96 Nasal Cannula 3.00 10/11/16 08:00 Nasal Cannula 3.00 10/11/16 07:03 16 10/11/16 06:00 72 10/11/16 05:00 74 10/11/16 04:00 74 10/11/16 04:00 97.3 73 16 137/84 96 10/11/16 04:00 Nasal Cannula 3.00 10/11/16 03:00 74 10/11/16 02:00 72 10/11/16 01:00 67 10/11/16 00:00 Nasal Cannula 3.00 10/11/16 00:00 68 10/11/16 00:00 98.6 69 16 138/71 97 10/10/16 21:17 98 Nasal Cannula 3.00 10/10/16 21:00 95 Nasal Cannula 3.00 10/10/16 20:30 98.6 68 20 117/70 98 10/10/16 20:00 67 10/10/16 20:00 98 Nasal Cannula 5.00 10/10/16 18:09 69 16 112/66 96 10/10/16 17:16 68 10/10/16 16:16 99.2 69 16 160/88 96 10/10/16 16:16 96 Nasal Cannula 4.00 10/10/16 14:23 16 10/10/16 11:25 95 Nasal Cannula 4 10/10/16 11:25 94 Nasal Cannula 4.00 10/10/16 11:25 98 Nasal Cannula 4.00 10/10/16 11:00 88 10/10/16 11:00 100.3 92 26 174/96 94 10/10/16 09:36 Nasal Cannula 40 10/10/16 09:00 76 10/10/16 09:00 98.4 58 15 122/53 93 10/10/16 09:00 93 Mechanical Ventilator 40 10/10/16 09:00 40 10/10/16 08:50 96 40 10/10/16 08:40 99 100 I/O 10/10/16 10/10/16 10/10/16 10/11/16 10/11/16 10/11/16 07:00 15:00 23:00 07:00 15:00 23:00 Intake Total 817 ml 350 ml 500 ml Output Total 550 ml 2225 ml 350 ml Balance 267 ml -1875 ml 150 ml Intake Oral 0 ml 100 ml IV Total 362 ml 250 ml 500 ml Tube Feeding 455 ml Output Urine Total 550 ml 2225 ml 350 ml # Bowel Movements 0 0 Result Diagram: 10/11/16 0551 10/11/16 0551 Imaging Last Impressions Chest X-Ray 10/11/16 0600 Signed Impressions: Service Date/Time: Tuesday, October 11, 2016 04:54 - CONCLUSION: Bilateral airspace disease with diminished lung volumes. Je Perez MD Head CT 10/05/16 0000 Signed Impressions: Service Date/Time: Wednesday, October 05, 2016 14:02 - CONCLUSION: 1. Remote posterior temporal/parietal infarct with laminar necrosis. 2. No acute intracranial abnormality. Alber Millan MD Objective Remarks gen: middle-aged female, lying in bed heent: pupils 2mm, conjugate, reactive. mucous membranes moist neck: trachea midline. -jvd. RIJ cvl site intact and clean. chest: bilateral breath sounds. equal chest rise. currently on PSV 5/5/40%. there is a pressure dressing over the left anterior chest wall which is clean, dry, intact. cv: normal rate, regular rhythm. sinus by tele. Systolic murmur abd: soft, nontender, nondistended, no guarding. extr: extremities with improved perfusion. neuro: . x 4. Procedures Central line placement AICD A/P Problem List: (1) Cardiac arrest ICD Code: I46.9 Status: Acute Assessment and Plan 51yF with history of severe NICM, baseline EF ~20%, and a history of IV drug abuse with last known use 10 days prior to admission. Presents s/p V. Fib arrest out of hospital and severe dysrhythmias. Clinically improving s/p AICD Neurologic: Hypoxic ischemic encephalopathy- improving. Agitated Delirium- improving. Polysubstance abuse Frequent neurochecks -- continue scheduled oxycodone 5mg po q4h for opiate withdraw symptoms Respiratory: Acute hypoxic and hypercarbic respiratory failure- improving. Secondary to cardiac arrest Nebs Wean FiO2 for goal SPO2 greater than 92% aggressive PT to prevent deconditioning Cardiovascular: Cardiogenic shock- resolved Status post V. fib arrest Severe nonischemic cardiomyopathy, EF less than 20% Severe biventricular dysfunction Severe acute systolic heart failure exacerbation- resolving. Malignant Ventricular dysrhythmias- persistent. -- goal SBP 90 - 120. -- continue carvedilol, entresto. Appreciate cardiology's ongoing recommendations -- amio po 200mg bid -- lasix to po goal euvolemic to net -500cc/24h. -- s/p AICD placement 10/10. Renal: Acute kidney injury- resolved. Likely secondary cardiogenic shock and postarrest -- Strict I/Os FEN/GI: Acute protein calorie malnutritionmoderate Hypomagnesemia Hypokalemia Lactic acidosis- resolved. Constipation Aggressive electrolyte replacements given dysrhythmias monitor BMP -- increase bowel regimen. Heme/ID: Leukocytosislikely reactive, resolved. No suspicions for infectious etiology this time. Blood cultures have been negative x >72h. unlikely to have an infectious etiology. Cleared from ICU standpoint for device implantation. Follow-up blood cultures NGTD Endocrine: Hyperglycemia of critical illness -- SSI -- Levemir 10 units SQ daily. Prophylaxis: GI Prophylaxis Protonix 40 mg every 24 hours DVT Prophylaxis -- SCDs Subcutaneous heparin Lines: 10/05 right IJ 8.5 [place]ri[place] Cordis introducer sheath- d/c Fabian: d/c Discharge Planning Stable for dc to rehab when arranged. I spent 35 minutes kzet-ra-[id number] with the patient or on the hollis discussing the patient's disposition, prognosis, and plan of care with patient's caregivers. Over half the time spent was devoted to counseling the patient regarding placement in coordinating care with caregivers and case management. Carlos Anderson MD Oct 11, 2016 08:39 Frequent neurochecks -- continue scheduled oxycodone 5mg po q4h for opiate withdraw symptoms Respiratory: Acute hypoxic and hypercarbic respiratory failure- improving. Secondary to cardiac arrest Nebs Wean FiO2 for goal SPO2 greater than 92% aggressive PT to prevent deconditioning Cardiovascular: Cardiogenic shock- resolved Status post V. fib arrest Severe nonischemic cardiomyopathy, EF less than 20% Severe biventricular dysfunction Severe acute systolic heart failure exacerbation- resolving. Malignant Ventricular dysrhythmias- persistent. -- goal SBP 90 - 120. -- continue carvedilol, entresto. Appreciate cardiology's ongoing recommendations -- amio po 200mg bid -- lasix 40mg iv goal euvolemic to net -500cc/24h. -- s/p AICD placement 10/10. Renal: Acute kidney injury- resolved. Likely secondary cardiogenic shock and postarrest -- Strict I/Os FEN/GI: Acute protein calorie malnutritionmoderate Hypomagnesemia Hypokalemia Lactic acidosis- resolved. Constipation Aggressive electrolyte replacements given dysrhythmias Daily BMP -- increase bowel regimen. Heme/ID: Leukocytosislikely reactive, resolved. No suspicions for infectious etiology this time. Blood cultures have been negative x >72h. unlikely to have an infectious etiology. cleared from ICU standpoint for device implantation. Follow-up blood cultures Daily CBC Endocrine: Hyperglycemia of critical illness -- SSI -- Levemir 10 units SQ daily. Prophylaxis: GI Prophylaxis Protonix 40 mg IV every 24 hours DVT Prophylaxis -- SCDs Subcutaneous heparin Lines: 10/05 right IJ 8.5 Syri[place] Cordis introducer sheath- d/c Fabian: d/c Carlos Anderson MD Oct 11, 2016 08:39 Carlos Anderson MD Oct 11, 2016 08:39
--- NOTE | 2016-10-11 08:52 | HHI.DCPOC ---
Discharge Care Plan Diagnosis: (1) Cardiac arrest Your Health Problems Are: Difficulty with ADL Exercise Tolerance Goals to Promote Your Health * To prevent worsening of your condition and complications * To maintain your health at the optimal level Directions to Meet Your Goals Take your medications as prescribed Follow your dietary instruction Follow activity as directed Keep your appointments as scheduled Take your immunizations and boosters as scheduled If your symptoms worsen call your PCP, if no PCP go to Urgent Care Center or Emergency Room Smoking is Dangerous to Your Health. Avoid second hand smoke Call the 24-hour hour crisis hotline for domestic abuse at Carlos Anderson MD Oct 11, 2016 08:52
--- NOTE | 2016-10-11 08:52 | HHI.FF ---
Face to Face Verification Diagnosis: (1) Cardiac arrest Physical Therapy Order: Evaluate and Treat, Improve ambulation, Strength and gait training I have seen patient Shahida Rojas on 10/11/16. My clinical findings support the need for the requested home health care services because: Ltd mobility - disease progression I certify that my clinical findings support that this patient is homebound because: Need for psychosocial assistance Poor cardiac reserve Carlos Anderson MD Oct 11, 2016 08:52
[2016-10-11] MEDS: AMIODARONE 200 MG TAB PO SCH ×2 (09:00→21:23)
[2016-10-11] MEDS: BISACODYL 10 MG SUPP RECTAL SCH (09:00)
[2016-10-11] MEDS: PANTOPRAZOLE SODIUM 40 MG VIAL IV SCH (09:00)
[2016-10-11] MEDS: FUROSEMIDE 40 MG/4 ML VIAL IV PUSH SCH (09:23)
[2016-10-11] MEDS: POLYETHYLENE GLYCOL 17 GM PKG PO SCH ×2 (09:24→21:19)
[2016-10-11] MEDS: CARVEDILOL 3.125 MG TAB PO SCH (09:24)
[2016-10-11] MEDS: DOCUSATE SODIUM 50 MG/SENNA 8.6 MG TAB PO SCH ×2 (09:24→21:00)
[2016-10-11] MEDS: SACUBITRIL/VALSARTAN 24 MG-26 MG TAB PO SCH ×2 (09:24→21:00)
[2016-10-11] MEDS: guanFACINE HCL 1 MG TAB PO SCH ×2 (09:24→21:00)
[2016-10-11] MEDS: MEXILETINE HCL 200 MG CAP PO SCH ×2 (09:24→21:00)
[2016-10-11] MEDS: MUPIROCIN 2% OINT 1 APPLIC/GM SYR EACH NARE SCH ×2 (09:24→21:18)
[2016-10-11] MEDS: LACTULOSE SYRUP 20 GM/30 ML CUP PO SCH ×2 (09:25→21:18)
--- NOTE | 2016-10-11 10:04 | HHI.FF ---
Face to Face Verification Diagnosis: (1) Cardiac arrest Speech Therapy Order: To Improve: Cognitive skills Home Health Nursing Order: Medical education Signs/symptoms of disease process CHF education Body Line Finisher Order: To Evaluate: Living conditions/environment, Support services Order: To Provide: Long range planning, Community services I have seen patient Shahida Rojas on 10/11/16. My clinical findings support the need for the requested home health care services because: Deconditioned w/ increased weakness I certify that my clinical findings support that this patient is homebound because: Unsafe to leave home unassisted Poor cardiac reserve Carlos Anderson MD Oct 11, 2016 10:04
[2016-10-11] MEDS: INSULIN ASPART SUPPLEMENTAL SCALE SQ SCH ×3 (11:00→21:00)
[2016-10-11] MEDS: HYDROmorphone HCL PF 1 MG/ML VIAL IV PUSH PRN ×2 (11:26→14:51)
--- NOTE | 2016-10-11 12:33 | PD.CARD.PN ---
Objective Vital Signs / I&O Vital Signs Date Time Temp Pulse Resp B/P Pulse Ox O2 Delivery O2 Flow Rate FiO2 10/11/16 12:00 97.9 65 18 116/67 98 10/11/16 12:00 Nasal Cannula 3.00 10/11/16 12:00 70 10/11/16 11:41 16 10/11/16 11:00 66 10/11/16 10:27 20 10/11/16 10:00 62 10/11/16 09:00 66 10/11/16 08:15 96 Nasal Cannula 3.00 10/11/16 08:00 Nasal Cannula 3.00 10/11/16 08:00 65 10/11/16 08:00 97.8 75 18 137/77 96 10/11/16 07:00 74 10/11/16 06:00 72 10/11/16 05:00 74 10/11/16 04:00 74 10/11/16 04:00 97.3 73 16 137/84 96 10/11/16 04:00 Nasal Cannula 3.00 10/11/16 03:00 74 10/11/16 02:00 72 10/11/16 01:00 67 10/11/16 00:00 Nasal Cannula 3.00 10/11/16 00:00 68 10/11/16 00:00 98.6 69 16 138/71 97 10/10/16 21:17 98 Nasal Cannula 3.00 10/10/16 21:00 95 Nasal Cannula 3.00 10/10/16 20:30 98.6 68 20 117/70 98 10/10/16 20:00 67 10/10/16 20:00 98 Nasal Cannula 5.00 10/10/16 18:09 69 16 112/66 96 10/10/16 17:16 68 10/10/16 16:16 99.2 69 16 160/88 96 10/10/16 16:16 96 Nasal Cannula 4.00 10/10/16 14:23 16 I/O 10/10/16 10/10/16 10/10/16 10/11/16 10/11/16 10/11/16 06:59 14:59 22:59 06:59 14:59 22:59 Intake Total 817 ml 350 ml 500 ml Output Total 550 ml 2225 ml 350 ml Balance 267 ml -1875 ml 150 ml Intake Oral 0 ml 100 ml IV Total 362 ml 250 ml 500 ml Tube Feeding 455 ml Output Urine Total 550 ml 2225 ml 350 ml # Bowel Movements 0 0 Laboratory Laboratory Tests Test 10/11/16 05:51 White Blood Count 6.1 TH/MM3 Red Blood Count 4.18 MIL/MM3 Hemoglobin 11.7 GM/DL Hematocrit 37.0 % Mean Corpuscular Volume 88.5 FL Mean Corpuscular Hemoglobin 28.0 PG Mean Corpuscular Hemoglobin 31.7 % Concent Red Cell Distribution Width 14.1 % Platelet Count 210 TH/MM3 Mean Platelet Volume 7.5 FL Sodium Level 143 MEQ/L Potassium Level 3.9 MEQ/L Chloride Level 106 MEQ/L Carbon Dioxide Level 29.8 MEQ/L Anion Gap 7 MEQ/L Blood Urea Nitrogen 16 MG/DL Creatinine 0.60 MG/DL Estimat Glomerular Filtration 105 ML/MIN Rate Random Glucose 175 MG/DL Calcium Level 10.0 MG/DL Magnesium Level 1.7 MG/DL Assessment and Plan Discussed Condition With PT UP IN CHAIR IN PCU WEEPY CXR PULM EDEMA C SMALL EFFUSION NO PTX NO VT LABS OK K4 DC PLANNING IN PROGRESS OK TO DC CV HERNANDEZ ICD CK THIS AM OK SUTURES OUT MY OFFICE NEST FRIDAY NO SHOWER TILL THEN Jarvis Trujillo DO Oct 11, 2016 12:33
[2016-10-11] MEDS ORDERED: FUROSEMIDE 100 MG/10 ML VIAL IV PUSH ONE (14:45)
[2016-10-11] MEDS ORDERED: AMIO200T PO (14:50)
[2016-10-11] MEDS ORDERED: BACTOIN EACH NARE (14:50)
[2016-10-11] MEDS ORDERED: POLY17S PO (14:50)
[2016-10-11] MEDS ORDERED: MAGN400T3 PO (14:50)
[2016-10-11] MEDS ORDERED: CARV6.25 PO (14:50)
[2016-10-11] MEDS ORDERED: LEVEMIR SQ (14:50)
[2016-10-11] MEDS ORDERED: POTA-243 PO (14:50)
[2016-10-11] MEDS ORDERED: SACU1TAB PO (14:50)
[2016-10-11] MEDS ORDERED: PANT40TA3 PO (14:50)
[2016-10-11] MEDS ORDERED: OXYC1TAB63 PO (14:50)
[2016-10-11] MEDS ORDERED: SENN1TAB PO (14:50)
[2016-10-11] MEDS ORDERED: FURO40TA PO (14:50)
[2016-10-11] MEDS ORDERED: GUAN1TAB PO (14:50)
[2016-10-11] MEDS ORDERED: IPRASOL INH ×2 (14:54)
--- NOTE | 2016-10-11 15:07 | HHI.DS ---
Discharge Summary Admission Date Oct 05, 2016 at 12:36 Discharge Date: Oct 14, 2016 Admitting Diagnosis cardiac arrest (1) Cardiac arrest ICD Code: I46.9 Diagnosis: Principal Procedures Central line placement AICD Brief History - From Admission This is a 51yF who presents via [facility] for V. Fib cardiac arrest. She was given multiple rounds of epi, 2 amps of bicarb, 300mg amiodarone. Rhythms included v. fib, pea, and torsades. she received 2 gm mgso4 in the ER. ROSC was obtained. Per her two sons, she recently was at [facility] where she was given a LifeVest at the end of that admission in 07/2016. She was hot today and took off her LifeVest per her sons. They did say she had an appointment with [facility] in a few weeks to talk about "a new heart, or a pump", but no other work-up has been done. They gave me a phone number of a Dr. Mckoy [phone] who is her regional construction manager. Unfortunately, the patient is unresponsive and additional history is unobtainable. CBC/BMP: 10/11/16 0551 10/11/16 0551 Significant Findings Laboratory Tests Test 10/09/16 10/10/16 10/10/16 10/11/16 04:00 04:00 10:50 05:51 Platelet Count 146 TH/MM3 (150-450) Blood Urea Nitrogen 19 MG/DL (7-18) Estimat Glomerular Filtration 85 ML/MIN (>89) Rate Random Glucose 237 MG/DL 225 MG/DL 175 MG/DL (74-106) (74-106) (74-106) Red Blood Count 3.95 MIL/MM3 (4.00-5.30) Hemoglobin 11.0 GM/DL (11.6-15.3) Mean Corpuscular Hemoglobin 31.3 % 31.7 % Concent (32.0-36.0) (32.0-36.0) Venous Blood pH 7.42 (7.360-7.400) Venous Blood Partial Pressure 39 mmHg (44-48) CO2 Imaging Last Impressions Chest X-Ray 10/11/16 0600 Signed Impressions: Service Date/Time: Tuesday, October 11, 2016 04:54 - CONCLUSION: Bilateral airspace disease with diminished lung volumes. Je Perez MD Head CT 10/05/16 0000 Signed Impressions: Service Date/Time: Wednesday, October 05, 2016 14:02 - CONCLUSION: 1. Remote posterior temporal/parietal infarct with laminar necrosis. 2. No acute intracranial abnormality. Alber Millan MD PE at Discharge Well-developed well-nourished in no distress No JVD trachea midline Lungs are clear equal breath sounds Regular rate and rhythm with systolic murmur Extremities with improved edema and no cyanosis Alert oriented 4. Ambulated in the hallway and looked stable Hospital Course 51yF with history of severe NICM, baseline EF ~20%, and a history of IV drug abuse with last known use 10 days prior to admission. Presents s/p V. Fib arrest out of hospital and severe dysrhythmias. Hospitalization was complicated with hypoxic and hypercarbic respiratory failure, hypoxic ischemic encephalopathy and delirium, acute kidney injury. Clinically improving s/p AICD 10/10/16. She is now appropriate for rehabilitation secondary to prolonged hospitalization. Patient had hyperglycemic episode during hospitalization possibly due to critical illness with history of diabetes mellitus. Hemoglobin A1c 9.9. Need to follow-up with PCP or rehabilitation doctor. Pt Condition on Discharge: Stable Discharge Disposition: Rehab Inpatient Discharge Time: > 30 minutes Discharge Instructions DIET: Follow Instructions for: Heart Healthy Diet, Diabetic Diet Speech Therapy-Diet Recommends: Mechanical Soft, [place] Thickened Liquids, Chopped Meat w/Gravy Activities you can perform: Regular-No Restrictions Activities to Avoid: Driving Follow up Referrals: Cardiology - 1 Week PCP Follow-up - 1 Week New Orders: BASIC METABOLIC PROF - 10/14/16 MAGNESIUM (MG) - 10/14/16 New Medications: Albuterol 18 GM Inh (Ventolin Hfa 18 GM Inh) 90 Mcg/Act Aer 2 PUFF INH Q4H PRN SHORTNESS OF BREATH #1 Ref 0 INHALER Albuterol 18 GM Inh (Ventolin Hfa 18 GM Inh) 90 Mcg/Act Aer 2 PUFF INH Q4H PRN SHORTNESS OF BREATH #1 Ref 0 INHALER Ipratropium HFA 12.9 GM Inh (Atrovent HFA 12.9 GM Inh) 17 Mcg/Act Aer 2 PUFF INH Q6HR Breathing Treatment #1 Ref 0 INHALER Amiodarone (Amiodarone) 200 Mg Tab 200 MG PO BID Regulate Heart Beat #60 TAB Carvedilol (Coreg) 6.25 Mg Tab 6.25 MG PO BID Prevent Heart Failure #60 TAB Furosemide (Furosemide) 40 Mg Tab 40 MG PO BID Prevent Heart Failure #60 TAB Guanfacine (Guanfacine) 1 Mg Tab 2 MG PO Q12H Blood Pressure Management #60 TAB Magnesium Oxide (Magnesium Oxide) 241.3 Mg Tab 400 MG PO DAILY Electrolyte Replacement #30 TAB Mexiletine (Mexiletine) 200 Mg Cap 200 MG PO BID Regulate Heart Beat #60 CAP Mupirocin Nasal Oint (Bactroban Nasal Oint) 2% Oint 1 APPLIC EACH NARE BID dc 10/15/16 Infection #1 TUBE Oxycodone-Acetaminophen (Oxycodone-Acetaminophen) 5-325 mg Tab 1 TAB PO Q6H Pain Management #28 TAB Pantoprazole (Pantoprazole) 40 Mg Tab 40 MG PO DAILY Manage Heartburn #30 TAB Polyethylene Glycol 3350 Powder (Polyethylene Glycol 3350 Powder) 17 Gm Pow 17 GM PO BID Prevent Constipation #60 GM Potassium Chloride ER (Klor-Con 10) 10 Meq Tab 40 MEQ PO BID Electrolyte Replacement #60 TAB Sacubitril-Valsartan (Entresto) 24-26 Mg Tab 1 TAB PO BID Prevent Heart Failure #60 TAB Sennosides-Docusate Sodium (Senna Plus 8.6-50 mg) 1 Tab Tab 1 TAB PO BID Prevent Constipation #60 TAB Continued Medications: Insulin Human Isophane-Regular 70-30 Inj (Novolin 70/30 Inj) 1,000 Units/10 Ml Inj 20 UNIT BID Discontinued Medications: Hydrocodone/Acetaminophen 5 mg/325 mg (Lortab 5 mg/325 mg) 1 Tab 1-2 TAB PO Q6H PRN PAIN #24 TAB Ibuprofen (Motrin 400 mg Tab) 400 Mg Tab 400 MG PO Q8 PRN PAIN #21 Ref 1 TAB Lisinopril (Lisinopril) 2.5 Mg Tab 2.5 MG PO DAILY #30 Ref 0 TAB Oxycodone-Acetaminophen (Percocet) 5-325 mg Tab 1 TAB PO QID PRN PAIN Ref 0 TAB Spironolactone (Spironolactone) 25 Mg Tab 12.5 MG PO DAILY #15 Ref 0 TAB Additional Information I spent 35 minutes [id number] with the patient or on the hollis discussing the patient's disposition, prognosis, and plan of care with patient's caregivers. Over half the time spent was devoted to counseling the patient regarding placement in coordinating care with caregivers and case management. Carlos Anderson MD Oct 11, 2016 15:07 Debi Haas Oct 11, 2016 15:18 New Medications: Oxygen (O2) (Oxygen (O2)) Device 2 LITER JERROD.CANULA CONTINUOUS Oxygen Concentrator Portable Gaseous 2 L/min via Nasal Canula Continuous For 99 months Prevent Hypoxemia #2 CYLINDER Amiodarone (Amiodarone) 200 Mg Tab 200 MG PO BID Regulate Heart Beat #60 TAB Carvedilol (Coreg) 6.25 Mg Tab 6.25 MG PO BID Prevent Heart Failure #60 TAB Furosemide (Furosemide) 40 Mg Tab 40 MG PO BID Prevent Heart Failure #60 TAB Guanfacine (Guanfacine) 1 Mg Tab 2 MG PO Q12H Blood Pressure Management #60 TAB Insulin Detemir Inj (Levemir Inj) 1,000 unit/ 10 ML Vial 10 UNITS SQ DAILY Blood Sugar Management #30 INJECTION Ipratropium-Albuterol Neb (Duoneb) 0.5-2.5 Mg/3 Ml Neb 1 AMPULE INH Q6HR NEB Breathing Treatment #30 ML Ipratropium-Albuterol Neb (Duoneb) 0.5-2.5 Mg/3 Ml Neb 1 AMPULE INH Q2HR NEB PRN WHEEZING #30 ML Magnesium Oxide (Magnesium Oxide) 241.3 Mg Tab 400 MG PO DAILY Electrolyte Replacement #30 TAB Mupirocin Nasal Oint (Bactroban Nasal Oint) 2% Oint 1 APPLIC EACH NARE BID dc 10/15/16 Infection #1 TUBE Oxycodone-Acetaminophen (Oxycodone-Acetaminophen) 5-325 mg Tab 1 TAB PO Q6H Pain Management #28 TAB Pantoprazole (Pantoprazole) 40 Mg Tab 40 MG PO DAILY Manage Heartburn #30 TAB Polyethylene Glycol 3350 Powder (Polyethylene Glycol 3350 Powder) 17 Gm Pow 17 GM PO BID Prevent Constipation #60 GM Potassium Chloride ER (Klor-Con 10) 10 Meq Tab 10 MEQ PO BID Electrolyte Replacement #60 TAB Sacubitril-Valsartan (Entresto) 24-26 Mg Tab 1 TAB PO BID Prevent Heart Failure #60 TAB Sennosides-Docusate Sodium (Senna Plus 8.6-50 mg) 1 Tab Tab 1 TAB PO BID Prevent Constipation #60 TAB Carlos Anderson MD Oct 11, 2016 15:07
--- NOTE | 2016-10-11 18:04 | ECHRPT ---
Indication: F/U ENDOCARDITIS CONCLUSIONS No evidence for endocarditis. Severe left ventricular dysfunction. Ejection fraction approximately 20-25%. Trace tricuspid regurgitation without significant pulmonary hypertension. BP: 134 / 84 HR: 74 Rhythm: Sinus MEASUREMENTS (Male / Female) Normal Values Technical Quality:Fair 2D ECHO LV Diastolic Diameter PLAX 7.2 cm 4.2 - 5.9 / 3.9 - 5.3 cm LV Systolic Diameter PLAX 6.6 cm IVS Diastolic Thickness 1.1 cm 0.6 - 1.0 / 0.6 - 0.9 cm LVPW Diastolic Thickness 0.7 cm 0.6 - 1.0 / 0.6 - 0.9 cm LV Relative Wall Thickness 0.2 LVOT Diameter 2.5 cm Aortic Root Diameter 3.2 cm LA Systolic Diameter LX 3.5 cm 3.0 - 4.0 / 2.7 - 3.8 cm M-MODE AV Cusp Separation MM 2.1 cm DOPPLER TR Peak Velocity 251.0 cm/s TR Peak Gradient 25.2 mmHg Kaleb Beaulieu MD (Electronically Signed) Final Date:11 October 2016 18:03
[2016-10-11] MEDS: FUROSEMIDE 40 MG TAB PO SCH (21:00)
[2016-10-11] MEDS: CARVEDILOL 6.25 MG TAB PO SCH (21:00)
[2016-10-11] MEDS ORDERED: POTASSIUM CHLORIDE 10 MEQ TAB PO SCH (21:00)
[2016-10-11] MEDS: oxyCODONE/ACETAMINOPHEN 5 MG/325 MG TAB PO PRN (23:27)
[2016-10-12] VITALS (24 sets, daily range): BP systolic 109–120; BP diastolic 54–78; PULSE 60–76; RESP 16; TEMP 97.6–99.2; O2SAT 93–96
[2016-10-12] MEDS: oxyCODONE HCL ORAL CONC 20 MG/ML SYRINGE PO SCH ×5 (02:18→21:14)
[2016-10-12] MEDS: HEPARIN SODIUM - SQ 10,000 UNITS/ML VIAL SQ SCH ×4 (02:19→21:16)
[2016-10-12] MEDS: RESP: ALBUTEROL 2.5 MG/IPRATROPIUM 0.5 MG NEB (SCH) INH ×3 (03:26→21:40)
[2016-10-12] MEDS: CHLORHEXIDINE GLUCONATE 2 % 1 PACK (2 CLOTHS) TOP SCH (04:00)
[2016-10-12 06:23] LABS: MAGNESIUM 1.6 MG/DL (1.5-2.5); POTASSIUM 3.6 MEQ/L (3.5-5.1)
[2016-10-12] MEDS: INSULIN ASPART SUPPLEMENTAL SCALE SQ SCH ×4 (07:00→21:00)
--- NOTE | 2016-10-12 07:58 | HHI.PR ---
Subjective Remarks Follow-up severe cardiomyopathy. Negative fluid balance of 760 mL. Potassium 3.6. Patient doing okay feeling better smiling tolerating 2 L nasal cannula Objective Vitals Vital Signs Date Time Temp Pulse Resp B/P Pulse Ox O2 Delivery O2 Flow Rate FiO2 10/12/16 05:00 66 10/12/16 04:28 Nasal Cannula 3.00 10/12/16 04:00 64 10/12/16 03:00 67 10/12/16 02:00 66 10/12/16 01:00 65 10/12/16 00:24 Nasal Cannula 3.00 10/12/16 00:00 66 10/11/16 23:00 69 10/11/16 22:00 70 10/11/16 21:58 Nasal Cannula 3.00 10/11/16 21:23 105/51 10/11/16 21:00 72 10/11/16 20:50 90 21 10/11/16 20:00 70 10/11/16 20:00 98.3 74 18 110/53 90 10/11/16 19:00 70 10/11/16 18:00 64 10/11/16 17:20 20 10/11/16 17:00 68 10/11/16 16:00 66 10/11/16 16:00 98.1 65 18 126/72 98 10/11/16 16:00 Nasal Cannula 3.00 10/11/16 15:23 20 10/11/16 15:00 62 10/11/16 14:00 66 10/11/16 13:00 64 10/11/16 12:00 97.9 65 18 116/67 98 10/11/16 12:00 Nasal Cannula 3.00 10/11/16 12:00 70 10/11/16 11:00 66 10/11/16 10:00 62 10/11/16 09:00 66 10/11/16 08:15 96 Nasal Cannula 3.00 10/11/16 08:00 Nasal Cannula 3.00 10/11/16 08:00 65 10/11/16 08:00 97.8 75 18 137/77 96 I/O 10/11/16 10/11/16 10/11/16 10/12/16 10/12/16 10/12/16 07:00 15:00 23:00 07:00 15:00 23:00 Intake Total 500 ml 790 ml 400 ml Output Total 350 ml 1650 ml 300 ml Balance 150 ml -860 ml 100 ml Intake Oral 540 ml 400 ml IV Total 500 ml 250 ml Output Urine Total 350 ml 1650 ml 300 ml # Bowel Movements 0 0 Result Diagram: 10/11/16 0551 10/12/16 0514 Imaging Last Impressions Chest X-Ray 10/11/16 0600 Signed Impressions: Service Date/Time: Tuesday, October 11, 2016 04:54 - CONCLUSION: Bilateral airspace disease with diminished lung volumes. Je Perez MD Head CT 10/05/16 0000 Signed Impressions: Service Date/Time: Wednesday, October 05, 2016 14:02 - CONCLUSION: 1. Remote posterior temporal/parietal infarct with laminar necrosis. 2. No acute intracranial abnormality. Alber Millan MD Objective Remarks gen: middle-aged female, lying in bed heent: pupils 2mm, conjugate, reactive. mucous membranes moist neck: trachea midline. -jvd. RIJ cvl site intact and clean. chest: bilateral breath sounds. equal chest rise. cv: normal rate, regular rhythm. sinus by tele. Systolic murmur abd: soft, nontender, nondistended, no guarding. extr: extremities with improved perfusion. neuro: . x 4. Procedures Central line placement AICD A/P Problem List: (1) Cardiac arrest ICD Code: I46.9 Status: Acute Assessment and Plan 51yF with history of severe NICM, baseline EF ~20%, and a history of IV drug abuse with last known use 10 days prior to admission. Presents s/p V. Fib arrest out of hospital and severe dysrhythmias. Clinically improving s/p AICD Neurologic: Hypoxic ischemic encephalopathy- improving. Agitated Delirium- improving. Polysubstance abuse Frequent neurochecks -- continue scheduled oxycodone 5mg po q4h for opiate withdraw symptoms. We'll decrease frequency Respiratory: Acute hypoxic and hypercarbic respiratory failure- improving. Secondary to cardiac arrest Nebs Wean FiO2 for goal SPO2 greater than 92% aggressive PT to prevent deconditioning Cardiovascular: Cardiogenic shock- resolved Status post V. fib arrest Severe nonischemic cardiomyopathy, EF less than 20% Severe biventricular dysfunction Severe acute systolic heart failure exacerbation- resolving. Malignant Ventricular dysrhythmias- persistent. -- goal SBP 90 - 120. -- continue carvedilol, entresto and mextil Appreciate cardiology's ongoing recommendations -- amio po 200mg bid -- lasix to po goal euvolemic to net -500cc/24h. -- s/p AICD placement 10/10. Renal: Acute kidney injury- resolved. Likely secondary cardiogenic shock and postarrest -- Strict I/Os FEN/GI: Acute protein calorie malnutritionmoderate Hypomagnesemia Hypokalemia Lactic acidosis- resolved. Constipation Aggressive electrolyte replacements given dysrhythmias monitor BMP -- increase bowel regimen. Heme/ID: Leukocytosislikely reactive, resolved. No suspicions for infectious etiology this time. Blood cultures have been negative x >72h. unlikely to have an infectious etiology. Cleared from ICU standpoint for device implantation. Follow-up blood cultures NGTD Endocrine: Hyperglycemia of critical illness -- SSI -- Levemir 10 units SQ daily. Follow-up A1c Prophylaxis: GI Prophylaxis Protonix 40 mg every 24 hours DVT Prophylaxis -- SCDs Subcutaneous heparin Lines: 10/05 right IJ 8.5 [place] Cordis introducer sheath- d/c Fabian: d/c Discharge Planning Stable for dc to rehab when arranged. Carlos Anderson MD Oct 12, 2016 07:58 Carlos Anderson MD Oct 12, 2016 07:58
[2016-10-12] MEDS ORDERED: MEXI200 PO (08:00)
[2016-10-12] MEDS ORDERED: POTA-243 PO (08:00)
[2016-10-12] MEDS: MEXILETINE HCL 200 MG CAP PO SCH ×2 (08:36→21:14)
[2016-10-12] MEDS: MAGNESIUM OXIDE 400 MG TAB PO SCH (08:38)
[2016-10-12] MEDS: BISACODYL 10 MG SUPP RECTAL SCH (08:38)
[2016-10-12] MEDS: FUROSEMIDE 40 MG TAB PO SCH ×2 (08:38→21:16)
[2016-10-12] MEDS: POTASSIUM CHLORIDE 10 MEQ CONTROLLED RELEASE TAB PO SCH ×2 (08:38→21:18)
[2016-10-12] MEDS: PANTOPRAZOLE SOD 40 MG DELAYED RELEASE TAB PO SCH (08:39)
[2016-10-12] MEDS: DOCUSATE SODIUM 50 MG/SENNA 8.6 MG TAB PO SCH ×2 (08:39→21:00)
[2016-10-12] MEDS: LACTULOSE SYRUP 20 GM/30 ML CUP PO SCH ×2 (08:39→21:00)
[2016-10-12] MEDS: AMIODARONE 200 MG TAB PO SCH ×2 (08:40→21:16)
[2016-10-12] MEDS: MUPIROCIN 2% OINT 1 APPLIC/GM SYR EACH NARE SCH ×2 (08:40→21:19)
[2016-10-12] MEDS: CARVEDILOL 6.25 MG TAB PO SCH ×2 (08:41→21:16)
[2016-10-12] MEDS: guanFACINE HCL 1 MG TAB PO SCH ×2 (09:00→21:18)
[2016-10-12] MEDS: SACUBITRIL/VALSARTAN 24 MG-26 MG TAB PO SCH ×2 (09:00→21:16)
[2016-10-12] MEDS: INSULIN DETEMIR 100 UNITS/ML VIAL SQ SCH (11:12)
[2016-10-12] MEDS: POLYETHYLENE GLYCOL 17 GM PKG PO SCH ×2 (11:13→21:00)
[2016-10-12] MEDS: oxyCODONE/ACETAMINOPHEN 5 MG/325 MG TAB PO PRN (14:05)
[2016-10-13] VITALS (30 sets, daily range): BP systolic 91–129; BP diastolic 50–90; PULSE 56–112; RESP 16–19; TEMP 97.4–99.1; O2SAT 90–98
[2016-10-13] MEDS: oxyCODONE/ACETAMINOPHEN 5 MG/325 MG TAB PO PRN ×5 (00:46→21:49)
[2016-10-13] MEDS: RESP: ALBUTEROL 2.5 MG/IPRATROPIUM 0.5 MG NEB (SCH) INH ×4 (03:21→21:59)
[2016-10-13] MEDS: CHLORHEXIDINE GLUCONATE 2 % 1 PACK (2 CLOTHS) TOP SCH (04:00)
[2016-10-13] MEDS: oxyCODONE HCL ORAL CONC 20 MG/ML SYRINGE PO SCH (04:06)
[2016-10-13 05:58] LABS: BICARBONATE 33.4 MEQ/L (21.0-32.0); POTASSIUM 3.3 MEQ/L (3.5-5.1)
[2016-10-13 06:20] LABS: MAGNESIUM 1.7 MG/DL (1.5-2.5)
[2016-10-13] MEDS: HEPARIN SODIUM - SQ 10,000 UNITS/ML VIAL SQ SCH ×3 (06:57→21:55)
[2016-10-13] MEDS: INSULIN ASPART SUPPLEMENTAL SCALE SQ SCH ×4 (06:58→21:00)
[2016-10-13] MEDS ORDERED: POTA-243 PO (08:04)
[2016-10-13] MEDS: POLYETHYLENE GLYCOL 17 GM PKG PO SCH ×2 (09:00→21:00)
[2016-10-13] MEDS: BISACODYL 10 MG SUPP RECTAL SCH (09:00)
[2016-10-13] MEDS: LACTULOSE SYRUP 20 GM/30 ML CUP PO SCH ×2 (09:00→21:00)
[2016-10-13] MEDS: DOCUSATE SODIUM 50 MG/SENNA 8.6 MG TAB PO SCH ×2 (09:00→21:48)
[2016-10-13] MEDS: SACUBITRIL/VALSARTAN 24 MG-26 MG TAB PO SCH ×2 (09:12→21:00)
[2016-10-13] MEDS: FUROSEMIDE 40 MG TAB PO SCH ×2 (09:12→21:00)
[2016-10-13] MEDS: MUPIROCIN 2% OINT 1 APPLIC/GM SYR EACH NARE SCH ×2 (09:13→21:46)
[2016-10-13] MEDS: POTASSIUM CHLORIDE 20 MEQ CONTROLLED RELEASE TAB PO SCH ×2 (09:13→21:51)
[2016-10-13] MEDS: MEXILETINE HCL 200 MG CAP PO SCH ×2 (09:13→21:50)
[2016-10-13] MEDS: MAGNESIUM OXIDE 400 MG TAB PO SCH (09:13)
[2016-10-13] MEDS: AMIODARONE 200 MG TAB PO SCH ×2 (09:13→21:48)
[2016-10-13] MEDS: CARVEDILOL 6.25 MG TAB PO SCH ×2 (09:14→21:00)
[2016-10-13] MEDS: PANTOPRAZOLE SOD 40 MG DELAYED RELEASE TAB PO SCH (09:14)
[2016-10-13] MEDS: guanFACINE HCL 1 MG TAB PO SCH ×2 (09:14→21:00)
[2016-10-13] MEDS: INSULIN DETEMIR 100 UNITS/ML VIAL SQ SCH (09:16)
--- NOTE | 2016-10-13 10:15 | HHI.PR ---
Subjective Remarks Follow-up cardiomyopathy. She is doing well ambulating in her room off oxygen for some time saturation 96%. Denies shortness of breath and chest pain. Discussed with respiratory therapy to repeat walk test. Also discussed with nursing, wound care for coccygeal decub. Patient states she is on several medications needs refills. She is on 70/30 20 units twice a day, digoxin, Percocet 5 mg 4 times a day and other unrecalled medications. She gets her prescriptions from Yehuda rahman. RN to follow up and update medication list. Objective Vitals Vital Signs Date Time Temp Pulse Resp B/P Pulse Ox O2 Delivery O2 Flow Rate FiO2 10/13/16 09:17 18 10/13/16 09:00 70 10/13/16 08:00 60 10/13/16 08:00 112 18 115/76 94 10/13/16 08:00 94 Room Air 10/13/16 07:07 99.0 62 16 113/69 95 10/13/16 07:00 60 10/13/16 06:00 69 10/13/16 05:00 69 10/13/16 04:16 94 Room Air 10/13/16 04:00 69 10/13/16 03:00 69 10/13/16 02:00 69 10/13/16 01:00 69 10/13/16 00:30 99.1 66 16 129/74 90 10/13/16 00:25 94 Room Air 10/13/16 00:00 64 10/12/16 23:00 69 10/12/16 22:00 76 10/12/16 21:40 94 21 10/12/16 21:00 68 10/12/16 20:51 94 Room Air 10/12/16 20:00 66 10/12/16 20:00 99.2 66 16 120/78 93 10/12/16 19:00 66 10/12/16 18:00 69 10/12/16 17:00 69 10/12/16 16:00 65 10/12/16 15:00 94 Room Air 10/12/16 15:00 97.6 66 16 118/74 96 10/12/16 14:00 74 10/12/16 13:00 73 10/12/16 12:00 67 10/12/16 11:00 96 Nasal Cannula 1.00 10/12/16 11:00 97.8 60 16 109/54 95 I/O 10/12/16 10/12/16 10/12/16 10/13/16 10/13/16 10/13/16 07:00 15:00 23:00 07:00 15:00 23:00 Intake Total 400 ml 800 ml 520 ml 480 ml Output Total 300 ml 920 ml 925 ml Balance 100 ml 800 ml -400 ml -445 ml Intake Oral 400 ml 800 ml 520 ml 480 ml Output Urine Total 300 ml 920 ml 925 ml # Voids 5 # Bowel Movements 0 4 0 Result Diagram: 10/11/16 0551 10/13/16 0521 Objective Remarks Well-developed well-nourished in no distress No JVD trachea midline Lungs are clear equal breath sounds Regular rate and rhythm with systolic murmur Extremities with improved edema and no cyanosis Alert oriented 4. Ambulated in the hallway and looked stable Procedures Central line placement AICD A/P Problem List: (1) Cardiac arrest ICD Code: I46.9 Status: Acute Assessment and Plan 51yF with history of severe NICM, baseline EF ~20%, and a history of IV drug abuse with last known use 10 days prior to admission. Presents s/p V. Fib arrest out of hospital and severe dysrhythmias. Clinically improving s/p AICD Neurologic: Hypoxic ischemic encephalopathy-resolving Agitated Delirium-resolved Polysubstance abuse Frequent neurochecks -- continue scheduled oxycodone 5mg po q4h for opiate withdraw symptoms. We'll decrease frequency 10/13 discontinue scheduled oxycodone and continue as needed Percocet Respiratory: Acute hypoxic and hypercarbic respiratory failure-resolved she passed walk test Secondary to cardiac arrest Nebs Wean FiO2 for goal SPO2 greater than 92% aggressive PT to prevent deconditioning Cardiovascular: Cardiogenic shock- resolved Status post V. fib arrest Severe nonischemic cardiomyopathy, EF less than 20% Severe biventricular dysfunction Severe acute systolic heart failure exacerbation- resolving. Malignant Ventricular dysrhythmias- persistent. -- goal SBP 90 - 120. -- continue carvedilol, entresto, amiodarone and mextil -- lasix to po goal euvolemic to net -500cc/24h. -- s/p AICD placement 10/10. Renal: Acute kidney injury- resolved. Likely secondary cardiogenic shock and postarrest -- Strict I/Os FEN/GI: Acute protein calorie malnutritionmoderate Hypomagnesemia Hypokalemia Lactic acidosis- resolved. Constipation Aggressive electrolyte replacements given dysrhythmias monitor BMP -- increase bowel regimen. Heme/ID: Leukocytosislikely reactive, resolved. No suspicions for infectious etiology this time. Blood cultures have been negative x >72h. unlikely to have an infectious etiology. Cleared from ICU standpoint for device implantation. Follow-up blood cultures NGTD Endocrine: Hyperglycemia of critical illness -- SSI -- Levemir 10 units SQ daily. Follow-up A1c Prophylaxis: GI Prophylaxis Protonix 40 mg every 24 hours DVT Prophylaxis -- SCDs Subcutaneous heparin Lines: 7 right IJ 8.5 [place] Cordis introducer sheath- d/c Fabian: d/c Discharge Planning Stable for dc with home health care when arranged. Carlos Anderson MD Oct 13, 2016 10:15
[2016-10-13] MEDS ORDERED: FURO1TAB62 PO (10:43)
[2016-10-13] MEDS ORDERED: SPIR25TA PO (10:43)
[2016-10-13] MEDS ORDERED: N7030SS (10:43)
[2016-10-13] MEDS ORDERED: LISI2.5T3 PO (10:43)
[2016-10-13] MEDS ORDERED: AMIO200T PO (10:43)
[2016-10-13] MEDS ORDERED: CARV6.25 PO (10:43)
[2016-10-13] MEDS ORDERED: PERC5TAB12 PO (10:43)
[2016-10-13] MEDS ORDERED: VENTAER INH (10:58)
[2016-10-13] MEDS ORDERED: IPRA17I INH (10:58)
[2016-10-13] MEDS: ACETAMINOPHEN 650 MG/20.3 ML UDC PO PRN (11:09)
[2016-10-13] MEDS ORDERED: DIGO0.12 PO (11:14)
[2016-10-13 12:32] LABS: HEMOGLOBIN A1a 1.8 %; HEMOGLOBIN A1b 2.8 %; HEMOGLOBIN Ao 78.5 %; HEMOGLOBIN LA1C 2.2 %; HEMOGLOBIN P3 4.6 %
[2016-10-13] MEDS ORDERED: oxyCODONE/ACETAMINOPHEN 5 MG/325 MG TAB PO PRN (20:00)
[2016-10-14] VITALS (14 sets, daily range): BP systolic 116–117; BP diastolic 70–76; PULSE 54–80; RESP 18–19; TEMP 97.5–97.6; O2SAT 94–98
[2016-10-14] MEDS: oxyCODONE/ACETAMINOPHEN 5 MG/325 MG TAB PO PRN ×3 (02:26→10:14)
[2016-10-14] MEDS ORDERED: oxyCODONE/ACETAMINOPHEN 5 MG/325 MG TAB PO ONE (02:45)
[2016-10-14] MEDS: RESP: ALBUTEROL 2.5 MG/IPRATROPIUM 0.5 MG NEB (SCH) INH ×2 (02:50→10:33)
[2016-10-14] MEDS: CHLORHEXIDINE GLUCONATE 2 % 1 PACK (2 CLOTHS) TOP SCH (04:00)
[2016-10-14] MEDS: HEPARIN SODIUM - SQ 10,000 UNITS/ML VIAL SQ SCH (06:28)
[2016-10-14] MEDS: INSULIN ASPART SUPPLEMENTAL SCALE SQ SCH ×2 (07:00→11:38)
[2016-10-14 07:29] LABS: BICARBONATE 31.2 MEQ/L (21.0-32.0); POTASSIUM 4.7 MEQ/L (3.5-5.1)
[2016-10-14] MEDS: POLYETHYLENE GLYCOL 17 GM PKG PO SCH (09:00)
[2016-10-14] MEDS: LACTULOSE SYRUP 20 GM/30 ML CUP PO SCH (09:00)
[2016-10-14] MEDS: BISACODYL 10 MG SUPP RECTAL SCH (09:00)
[2016-10-14] MEDS: DOCUSATE SODIUM 50 MG/SENNA 8.6 MG TAB PO SCH (09:00)
[2016-10-14] MEDS: AMIODARONE 200 MG TAB PO SCH (10:08)
[2016-10-14] MEDS: SACUBITRIL/VALSARTAN 24 MG-26 MG TAB PO SCH (10:09)
[2016-10-14] MEDS: POTASSIUM CHLORIDE 20 MEQ CONTROLLED RELEASE TAB PO SCH (10:09)
[2016-10-14] MEDS: guanFACINE HCL 1 MG TAB PO SCH (10:09)
[2016-10-14] MEDS: FUROSEMIDE 40 MG TAB PO SCH (10:09)
[2016-10-14] MEDS: MUPIROCIN 2% OINT 1 APPLIC/GM SYR EACH NARE SCH (10:10)
[2016-10-14] MEDS: MEXILETINE HCL 200 MG CAP PO SCH (10:11)
[2016-10-14] MEDS: MAGNESIUM OXIDE 400 MG TAB PO SCH (10:11)
[2016-10-14] MEDS: PANTOPRAZOLE SOD 40 MG DELAYED RELEASE TAB PO SCH (10:12)
[2016-10-14] MEDS: CARVEDILOL 6.25 MG TAB PO SCH (10:13)
[2016-10-14] MEDS: INSULIN DETEMIR 100 UNITS/ML VIAL SQ SCH (10:17)
== END 2016-10-14 11:49 | DRG 242 ==
LOC: NEPC 12:06 → NEDA 12:36 → HCVR 14:15 → HCIS 10-10 23:00
PROVIDERS: ADMIT Internal Medicine; ATTEND Internal Medicine
PROC: 5A1955Z Respiratory Ventilation, Greater than 96 Consecutive Hours (ICD-10-PCS; 2016-10-05)
PROC: 03HY32Z Insertion of Monitoring Device into Upper Artery, Percutaneous Approach (ICD-10-PCS; 2016-10-05)
PROC: 05HM33Z Insertion of Infusion Device into Right Internal Jugular Vein, Percutaneous Approach (ICD-10-PCS; 2016-10-05)
PROC: B543ZZA Ultrasonography of Right Jugular Veins, Guidance (ICD-10-PCS; 2016-10-05)
PROC: 02HP32Z Insertion of Monitoring Device into Pulmonary Trunk, Percutaneous Approach (ICD-10-PCS; 2016-10-05)
PROC: 5A2204Z Restoration of Cardiac Rhythm, Single (ICD-10-PCS; 2016-10-05)
PROC: 5A12012 Performance of Cardiac Output, Single, Manual (ICD-10-PCS; 2016-10-05)
PROC: 02HK3JZ Insertion of Pacemaker Lead into Right Ventricle, Percutaneous Approach (ICD-10-PCS; 2016-10-10)
PROC: 0JH604Z Insertion of Pacemaker, Single Chamber into Chest Subcutaneous Tissue and Fascia, Open Approach (ICD-10-PCS; principal; 2016-10-10 07:30)
DX: I49.01 Ventricular fibrillation (principal); J96.01 Acute respiratory failure with hypoxia; J96.02 Acute respiratory failure with hypercapnia; I50.23 Acute on chronic systolic (congestive) heart failure; G93.1 Anoxic brain damage, not elsewhere classified; E44.0 Moderate protein-calorie malnutrition; Z76.82 Awaiting organ transplant status; N17.9 Acute kidney failure, unspecified; E87.2 Acidosis; I11.0 Hypertensive heart disease with heart failure; E11.65 Type 2 diabetes mellitus with hyperglycemia; I46.2 Cardiac arrest due to underlying cardiac condition; I42.9 Cardiomyopathy, unspecified; I47.2 Ventricular tachycardia; E83.42 Hypomagnesemia; E87.6 Hypokalemia; D72.829 Elevated white blood cell count, unspecified; I25.10 Atherosclerotic heart disease of native coronary artery without angina pectoris; K59.00 Constipation, unspecified; F19.10 Other psychoactive substance abuse, uncomplicated; F31.9 Bipolar disorder, unspecified; F41.9 Anxiety disorder, unspecified; Z91.5 Personal history of self-harm
CPT/HCPCS: 33249; 36556; 70450; 71010; 76937; 80048; 80053; 80076; 80307; 81001; 82248; 82550; 82552; 82805; 82948; 83036; 83605; 83735; 84132; 84484; 85007; 85014; 85027; 85610; 85730; 86850; 86900; 86901; 87040; 87086; 87641; 93005; 93306; 93308; 94002; 94003; 94150; 94620; 94640; 94664; 94667; 94668; C1722; C1895; C9113; C9248; J0131; J0171; J0282; J1170; J1644; J1815; J1817; J1940; J2001; J2250; J2260; J2405; J3010; J3370; J3475; J3480; J7040; J7050; J7060